=== PATIENT | female | born 1990 | race Caucasian/White ===

== ENCOUNTER 2016-11-14 18:03 | Emergency (ER) | payer OTHER ==
[~2016-11-14] VITALS: Ht 180.3 cm; Wt 142.9 kg
[~2016-11-14 18:03] MED LIST: ALBUTEROL2.5 MG/3 M INH/SOL; AMOXIL500 MG PO; CALCIPOTRIENE TOP; CIPRO 500MG TA500 MG PO; CIPRO500 M1 PO; CIPRODEX 0.3%-7.5 ML OOTO; CLEOCIN HCL300 MG PO; ENDOCET 325 MG-1 TA1 PO; FIORICET 50-301 EACH PO; FOLIC ACID1 M1 PO; HUMIRA (4040 MG/0.8 INJ; MEDROL4 MG PO; METHOTREXA25 MG/1 ML IM; MOTRIN 600 MG600 MG PO; PERCOCET 325 MG1 TA2 PO; PERCOCET 5-3251 EACH PO; PROAIR HFA8.5 GM INH; STELARA90 MG/1 ML IM; URIBEL CAPSULE1 EACH PO; VICODIN 5-3001 EACH PO; VICODIN5-300 PO; ZOFRAN ODT4 M1 PO; ZOFRAN4 M2 PO
--- NOTE | 2016-11-14 19:21 | ED GENERAL ADULT ---
History of Present Illness General Chief Complaint: Chest Pain Stated Complaint: CP Source: patient Exam Limitations: no limitations Vital Signs & Intake/Output Vital Signs & Intake/Output Vital Signs Date Time Temp Pulse Resp B/P Pulse O2 O2 Flow FiO2 Ox Delivery Rate 11/14 2111 98.2 80 16 144/80 98 Room Air Room Air 11/14 1817 98.4 97 20 135/85 100 Room Air ED Intake and Output 11/15 0000 11/14 1200 Intake Total Output Total Balance Patient 315 lb Weight Allergies Coded Allergies: cat dander (TRIGGERS ASTHMA 11/14/16) Reconcile Medications Albuterol Sulfate (Proair Hfa) 8.5 GM HFA.AER.AD 2 PUF INH PRN ASTHMA ( Reported) Albuterol Sulfate 2.5 MG/3 ML VIAL.NEB 1 Vial INH/PATTI PRN ASTHMA (Reported) Naproxen 375 MG TABLET 1 TAB PO BID PRN PAIN (Reported) with food Oxycodone HCl/Acetaminophen (Percocet 5-325 MG Tablet) 5 MG-325 MG TABLET 1 TAB PO BID pain Prednisone 20 MG TABLET 1 TAB PO BID psoriac arthritis Secukinumab (Cosentyx Pen (2 Pens)) (Unknown Strength) PEN.INJCTR (Unknown Dose) PSORIATIC ARTHRITIS/PSORIASIS (Reported) Triage Note: TRIAGE: PT TO ER C/C PAIN TO MID CHEST AND UPPER ABD, ONSET THURSDAY. HAS PMHX INCLUDING PSORIATIC ARTHRITIS AND WAS SUPPOSED TO SEE FREIGHT SEPARATOR YESTERDAY BUT R/T WEATHER WAS UNABLE. STATES HER DR THINKS IT MIGHT BE SPREADING TO HER STERNUM. PT HAD EKG DONE IN [place] PRIOR TO TRIAGE. DENIES SOB, -N/V, -DIAPHORESIS. Triage Nurses Notes Reviewed? yes Onset: Gradual Duration: week(s): (2) Timing: recent history Injury Environment: home Severity: moderate Severity Numbers: 7 Modifying Factors: Improves With: immobilization. Worsens With: movement. : No Patient currently breastfeeds: No HPI: Patient is a 26-year-old female with history of psoriatic arthritis currently not on any medications because they are starting a new immunologic medication and a couple weeks. Patient complaining about chest wall pain that been constant for the past 2 weeks worse over the past 3 or 4 days. Denies any palpitations. No shortness of breath. Denies any control use. Denies any unilateral leg swelling. No history of blood clots. No recent travel, no recent surgery. She's been taking [id number] ibuprofen with little to no relief. She just finished a course of steroids last week for her psoriatic arthritis. Chest pain is achy worse with palpation or any movement. Symptoms currently is out of 10. (REBEL PINA) Past History Travel History Traveled to [place] past 21 day No Medical History Any Pertinent Medical History? 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 No (REBEL PINA) Review of Systems Review of Systems Constitutional: Reports: no symptoms. Comments Review of systems: See HPI, All other systems negative. Constitutional, no chills fever or weight loss HEENT: No visual changes no sore throat no congestion Cardiovascular: No palpitation , orthopnea or ankle swelling Skin, no jaundice no rashes Respiratory: No dyspnea cough sputum or hemoptysis GI: No nausea no vomiting : No dysuria No hematuria Muscle skeletal: no back pain, no neck pain, Neurologic: No numbness no confusion Psych: No stress anxiety Immunology: No splenectomy or history of AIDS (REBEL PINA) Physical Exam Physical Exam General Appearance: well developed/nourished, no apparent distress, alert, awake , comfortable, obese Comments: Well-developed well-nourished person in no acute distress HEENT: Pupils equally round and reactive to light and accommodation. Nose is atraumatic. Neck: Supple, no lymphadenopathy, normal range of motion without pain or tenderness Back: Nontender Cardiovascular: Regular rate and rhythms no murmurs rubs or gallops, normal JVP Respiratory: Chest is tender to palpation along the sternum, no rashes or bruising noted. No respiratory distress.breath sounds clear to auscultation bilaterally Abdomen: Soft, nontender nondistended, no appreciable organomegaly. Normal bowel sounds. No ascites, obese. Extremity: No edema, no calf tenderness to palpation, normal and equal pulses. Neuro: Alert oriented x3 Skin: No appreciable rash on exposed skin, skin is warm and dry. Psych: Mood and affect is normal, memory and judgment is normal. Core Measures ACS in differential dx? Yes CVA/TIA Diagnosis: No Severe Sepsis Present: No Septic Shock Present: No (PATIENCE MANCILLA,REBEL) Progress Differential Diagnoses I considered the following diagnoses in my evaluation of the patient: Chest wall pain, psoriatic arthritis, ACS, PE Plan of Care: Orders Procedure Date/time Status TROPONIN LEVEL 11/14 1919 Complete COMPREHENSIVE METABOLIC PANEL 11/14 1919 Complete CBC WITHOUT DIFFERENTIAL 11/14 1919 Complete EKG 11/14 1803 Active Laboratory Tests 11/14/161956: Anion Gap 15, Estimated GFR > 60, BUN/Creatinine Ratio 16.3, Glucose 96, Calcium 9.4, Total Bilirubin 0.7, AST 17, ALT 34, Alkaline Phosphatase 69, Troponin I < 0.01, Total Protein 8.0, Albumin 4.3, Globulin 3.7, Albumin/Globulin Ratio 1.2, CBC w Diff NO MAN DIFF REQ, RBC 5.02, MCV 80.2 L, MCH 26.7 L, RDW 13.6, MPV 7.6, Gran % 77.0 H, Lymphocytes % 15.6 L, Monocytes % 5.2, Eosinophils % 1.2, Basophils % 1.0, Absolute Granulocytes 10.5 H, Absolute Lymphocytes 2.1, Absolute Monocytes 0.7 H, Absolute Eosinophils 0.2, Absolute Basophils 0.1, PUBS MCHC 33.3 Diagnostic Imaging: Viewed by Me: Radiology Read. Discussed w/RAD: Radiology Read. Radiology Impression: PATIENT: BILLIE BURLESON PRESENT AGE: 26 PATIENT ACCOUNT NO: [id number] : 88 LOCATION: [facility] ORDERING PHYSICIAN: REBEL MANCILLA SERVICE DATE: 11/14/16-1919 EXAM TYPE: RAD - XRY-CHEST XRAY, PA AND LATERAL; XRY-STERNUM EXAMINATION: XR STERNUM CHEST X-RAY CLINICAL INFORMATION: History psoriatic arthritis. COMPARISON: None TECHNIQUE: 2 views of the sternum were obtained. PA and lateral chest FINDINGS: No gross evidence of sternal abnormality. Evaluation is limited by patient's body habitus. Cardiomediastinal silhouette is within normal limits. Lungs are clear. Visualized bony thorax is intact.. IMPRESSION: 1. No acute pulmonary disease. 2. No gross evidence of sternal abnormality. Evaluation is limited by patient's body habitus. Initial ED EKG: sinus rhythm at 96 bpm. Prior EKG: changed (slower than previous) Comments: On arrival patient given IM Toradol for pain. Patient had little relief with Toradol. She was then given Percocet which she reported helped. perc negative. EKG sinus rhythm. No acute changes. Troponin is negative. Pain has been constant for the past 2 weeks just worse over the past couple days. Pain is reproducible on exam. Likely muscular. Patient follow-up with PCP. (REBEL PINA) Departure Departure Time of Disposition: 2058 Disposition: HOME OR SELF CARE Condition: Stable Clinical Impression Primary Impression: Chest wall pain Referrals: TYRON GLEASON,SENTHIL Tripathi (PCP/Family) Additional Instructions: Follow-up with her primary care physician call to make appointment. Take prednisone as prescribed. Take Percocet as prescribed for severe pain. Return for worsening symptoms or concerns. Departure Forms: Customer Survey General Discharge Information Prescriptions: Current Visit Scripts Prednisone 1 TAB PO BID #8 TAB Oxycodone HCl/Acetaminophen (Percocet 5-325 MG Tablet) 1 TAB PO BID #10 TAB (REBEL PINA) PA/WEBFOCUS DEVELOPER Co-Sign Statement Statement: ED Attending supervision documentation- [] I saw and evaluated the patient. I have also reviewed all the pertinent lab results and diagnostic results. I agree with the findings and the plan of care as documented in the PA's/WEBFOCUS DEVELOPER's documentation. [x] I have reviewed the ED Record and agree with the PA's/WEBFOCUS DEVELOPER's documentation. [] Additions or exceptions (if any) to the PAs/WEBFOCUS DEVELOPER's note and plan are summarized below: [] (JUAREZ GLEASON,ELZA Tripathi) Critical Care Note Critical Care Note Critical Care Time: non-applicable (REBEL PINA)
[2016-11-14 20:08] LABS: ABSOLUTE BASOPHIL COUNT 0.1 /CUMM (0.0-0.2); ABSOLUTE EOSINOPHIL COUNT 0.2 /CUMM (0.0-0.7); ABSOLUTE GRANULOCYTE CT 10.5 /CUMM (1.4-6.5); ABSOLUTE LYMPH COUNT 2.1 /CUMM (1.2-3.4); ABSOLUTE MONOCYTE COUNT 0.7 /CUMM (0.10-0.60); EOSINOPHIL % 1.2 % (0-5); HEMATOCRIT 40.3 % (37-47); MEAN CORPUSCULAR HGB 26.7 PG (27.0-31.0); MEAN CORPUSCULAR HGB CONC 33.3 G/DL (33.0-37.0); MEAN CORPUSCULAR VOLUME 80.2 FL (81.0-99.0); MEAN PLATELET VOLUME 7.6 FL (7.4-10.4); PLATELET COUNT 284 /CUMM (130-400); RBC DISTRIBUTION WIDTH 13.6 % (11.5-14.5); RED BLOOD CELL CT 5.02 /CUMM (4.20-5.40); WHITE BLOOD CELL COUNT 13.6 /CUMM (4.8-10.8)
--- NOTE | 2016-11-14 20:22 | RADIOLOGY REPORT ---
EXAMINATION: XR STERNUM CHEST X-RAY CLINICAL INFORMATION: History psoriatic arthritis. COMPARISON: None TECHNIQUE: 2 views of the sternum were obtained. PA and lateral chest FINDINGS: No gross evidence of sternal abnormality. Evaluation is limited by patient's body habitus. Cardiomediastinal silhouette is within normal limits. Lungs are clear. Visualized bony thorax is intact.. IMPRESSION: 1. No acute pulmonary disease. 2. No gross evidence of sternal abnormality. Evaluation is limited by patient's body habitus.
[2016-11-14] MEDS ORDERED: COSENTYX P150 MG/11 PO (20:34)
[2016-11-14] MEDS ORDERED: NAPROXEN375 M2 PO (20:34)
[2016-11-14] MEDS ORDERED: PERCOCET 5-3251 EACH PO (21:01)
[2016-11-14] MEDS ORDERED: PREDNISONE20 M1 PO (21:01)
[2016-11-14 21:12] VITALS: BP 144/80
== END 2016-11-14 21:12 ==
LOC: ERH 18:03
PROVIDERS: Physician Assistant
DX: R07.89 Other chest pain (principal)
CPT/HCPCS: 71120; 93005; 93010; 96372; J1885

== ENCOUNTER 2016-12-13 10:11 | Emergency (ER) | payer OTHER ==
[~2016-12-13] VITALS: Ht 180.3 cm; Wt 158.8 kg
[~2016-12-13 10:11] MED LIST changes: +COSENTYX P150 MG/11 PO; +NAPROXEN375 M2 PO; +PREDNISONE20 M1 PO
[2016-12-13 10:19] VITALS: BP 142/85
--- NOTE | 2016-12-13 10:32 | ED EYE COMPLAINT ---
History of Present Illness General Chief Complaint: Eye Problems Stated Complaint: LFT EYE STY Source: patient Exam Limitations: no limitations Vital Signs & Intake/Output Vital Signs & Intake/Output Vital Signs Date Time Temp Pulse Resp B/P Pulse O2 O2 Flow FiO2 Ox Delivery Rate 12/13 1019 98.9 90 18 142/85 100 Room Air Allergies Coded Allergies: cat dander (TRIGGERS ASTHMA 11/14/16) Reconcile Medications Albuterol Sulfate (Proair Hfa) 8.5 GM HFA.AER.AD 2 PUF INH PRN ASTHMA ( Reported) Albuterol Sulfate 2.5 MG/3 ML VIAL.NEB 1 Vial INH/PATTI PRN ASTHMA (Reported) Naproxen 375 MG TABLET 1 TAB PO BID PRN PAIN (Reported) with food Oxycodone HCl/Acetaminophen (Percocet 5-325 MG Tablet) 5 MG-325 MG TABLET 1 TAB PO BID pain Polytrim (Polytrim Eye Drops) 10,000 UNIT-1 MG/ML DROPS 1 GTT OPH Q6 DISCHARGE FROM CORNER OF EYE Prednisone 20 MG TABLET 1 TAB PO BID psoriac arthritis Secukinumab (Cosentyx Pen (2 Pens)) (Unknown Strength) PEN.INJCTR (Unknown Dose) PSORIATIC ARTHRITIS/PSORIASIS (Reported) Triage Note: PT TO ED FOR STY TO L EYE, PT REPORTING SHE HAD ENDOSCOPY ON THURSDAY, WOKE UP "COUGHING REALLY REALLY HARD AND ITS BEEN RED SINCE" EYE APPEARS RED AND EYE LID APPEARS BRUISED, PT REPORTING MILD PAIN "WHEN I TOUCH IT" NO VISION CHANGES, NO SENSITIVITY TO LIGHT. Triage Nurses Notes Reviewed? yes Onset: Abrupt Duration: day(s): (3), constant, continues in ED Timing: recent history No Modifying Factors: none Left Eye Associated Symptoms: orbital swelling : No Patient currently breastfeeds: No HPI: 26-year-old female comes into emergency room for further evaluation of swelling to her left eye and some redness to her left eye. Patient reports that 3 days ago she had an upper endoscopy done. Patient reports that she woke up from the anesthesia and was coughing severely. Patient reports that a few hours later she noticed blood to her left eye. She also had some bruising to the left eyelid which developed over the next 24 hours. Patient was not told that she had any type of trauma during the upper endoscopy. Denies any vision loss. Patient reports that she did have some discharge yellow crusting out of the corner of the eye this morning. Denies any foreign body sensation or severe discomfort. Patient reports some mild irritation to the left side of the eye but otherwise is not having any pain. (STACIE LOMBARDO) Past History Travel History Traveled to [place] past 21 day No Medical History Any Pertinent Medical History? 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 No (STACIE LOMBARDO) Review of Systems Review of Systems Constitutional: Reports: no symptoms. Eyes: Reports: see HPI. Ear: Reports: no symptoms. Nose: Reports: no symptoms. Mouth: Reports: no symptoms. Throat: Reports: no symptoms. Respiratory: Reports: no symptoms. Cardiovascular: Reports: no symptoms. GI: Reports: no symptoms. Genitourinary: Reports: no symptoms. Musculoskeletal: Reports: no symptoms. Skin: Reports: no symptoms. Neurological/Psychological: Reports: no symptoms. Hematologic/Endocrine: Reports: no symptoms. Immunologic/Allergic: Reports: no symptoms. All Other Systems: Reviewed and Negative (STACIE LOMBARDO) Physical Exam General Appearance: well developed/nourished, mild distress General Inspection: ecchymosis to the left orbit Eyelid: ecchymosis Conjunctiva/Sclera: subconjunctival hemorrhag Cornea: normal inspection, examined w/fluorescein, no abrasion appreciated EOM: intact Pupil: normal accommodation, normal pupil, PERRL General Inspection: normal inspection Eyelid: normal inspection Conjunctiva/Sclera: normal inspection Cornea: normal inspection EOM: intact Pupil: normal accommodation, normal pupil, PERRL Anterior Chamber: normal inspection Physical Exam Head: atraumatic Nose: normal inspection Mouth/Throat: normal mouth inspection Neck: normal inspection Cardiovascular/Respiratory: normal breath sounds Neurologic/Psych: awake, alert, oriented x 3, normal mood/affect Skin: intact, normal color, warm/dry (STACIE LOMBARDO) Progress Differential Diagnosis: corneal abrasion, corneal foreign body, conjunctivitis, detached retina, glaucoma, globe rupture, retinal art./v. occlusion Plan of Care: 12/13/2016 11:14:21 AM Patient clinically looks well. Patient is nontoxic-appearing. Patient is in no apparent distress. Patient has a subconjunctival hemorrhage. There is no evidence of any type of globe trauma. There is no evidence of corneal abrasion. Patient has some bruising to the left eyelid. Patient likely had some mild trauma possibly from when she had the upper endoscopy but there is no visible signs of trauma to the eye itself. The subconjunctival hemorrhage is likely result from the patient's severe coughing. Patient has no vision loss. Clinically looks well. In no apparent distress. Patient started on eyedrops due to her complaints of discharge and crusting but there is no visible signs of infection at the moment. Patient was referred to follow-up with ophthalmology. Return if any other concerns worsening symptoms. (STACIE LOMBARDO) Departure Departure Disposition: HOME OR SELF CARE Condition: Stable Clinical Impression Primary Impression: Subconjunctival hemorrhage Referrals: TYRON GLEASON,SENTHIL Tripathi (PCP/Family) kalie HARRIS MD,[place] Lizarraga Additional Instructions: Use Polytrim drops as prescribed. Follow-up with dental assistant teacher. Return to emergency room if any concerns worsening symptoms. Please go over all results of today's visit with your primary care doctor. Contact your primary care doctor to let them know you were here in the emergency room. There may be nonspecific findings which may not be related to your visit today here in the emergency room but may require further evaluation and chronic monitoring by your primary care doctor. If you had a laceration today the chance of foreign body always remains. You should follow-up with your primary care doctor for recheck in 3-5 days for a wound check. If you had an x-ray done there is a chance that a fracture could have been missed on initial read and you should follow-up with your primary care doctor for repeat x-rays if symptoms persist. If your blood pressure was elevated here in the emergency room please have rechecked by her primary care doctor within the next 48 hours by your primary care doctor. If you were prescribed a narcotic here in the emergency room or any type of controlled substances you're not allowed to drive while taking this medication or operate any type of heavy machinery. Narcotics can make you feel lightheaded dizziness nausea and can cause constipation. You may need to pepper picker a stool softener. Thank you for choosing [facility] emergency room. Please return to the emergency room immediately if you have any other concerns worsening of symptoms. Departure Forms: Customer Survey General Discharge Information Prescriptions: Current Visit Scripts Polytrim (Polytrim Eye Drops) 1 GTT OPH Q6 #10 ML (STACIE LOMBARDO) PA/EFFERVESCENT SALTS COMPOUNDER Co-Sign Statement Statement: ED Attending supervision documentation- [] I saw and evaluated the patient. I have also reviewed all the pertinent lab results and diagnostic results. I agree with the findings and the plan of care as documented in the PA's/EFFERVESCENT SALTS COMPOUNDER's documentation. [X] I have reviewed the ED Record and agree with the PA's/EFFERVESCENT SALTS COMPOUNDER's documentation. [] Additions or exceptions (if any) to the PAs/EFFERVESCENT SALTS COMPOUNDER's note and plan are summarized below: [] (ALONDRA GLEASON,WHITNEY)
[2016-12-13] MEDS ORDERED: POLYTRIM EYE DR10 ML OPH (10:39)
== END 2016-12-13 10:42 ==
LOC: ERH 10:11
DX: H11.32 Conjunctival hemorrhage, left eye (principal)

== ENCOUNTER 2017-01-09 17:30 | Emergency (ER) | payer OTHER ==
[~2017-01-09] VITALS: Ht 180.3 cm; Wt 135.2 kg
[~2017-01-09 17:30] MED LIST changes: +POLYTRIM EYE DR10 ML OPH
--- NOTE | 2017-01-09 18:18 | ED GI/GU/ABDOMINAL COMPLAINT ---
History of Present Illness General Chief Complaint: General Adult Stated Complaint: HEMMOROIDS, BLEEDING Source: patient Exam Limitations: no limitations Vital Signs & Intake/Output Vital Signs & Intake/Output Vital Signs Date Time Temp Pulse Resp B/P Pulse O2 O2 Flow FiO2 Ox Delivery Rate 01/09 2122 96.5 78 18 122/57 98 Room Air 01/09 1908 85 16 100 Room Air 01/09 1905 97 Room Air 01/09 1741 97.7 124 20 107/68 99 Room Air ED Intake and Output 01/10 0000 01/09 1200 Intake Total Output Total Balance Patient 298 lb Weight Allergies Coded Allergies: cat dander (TRIGGERS ASTHMA 01/09/17) Triage Note: TRIAGE: PT TO ER C/C HEMNORHOIDAL PAIN AND BLEEDING, ONSET THURSDAY. ALSO REPORTS DIFFICULTY URINATING. PT S/P GASTRIC SLEEVE 12/18/2016. Triage Nurses Notes Reviewed? yes ? N Is pt currently ? No Onset: Abrupt Duration: day(s): (5) Timing: multiple episodes today Quality/Severity: sharpness, severe Location: RECTUM Activities at Onset: SURGERY ON December Modifying Factors: Worsens With: other (STRAINING). HPI: 26 year old female who presents with bright red blood per rectum that started on thursday. [place] hemorrhoids would come out with valsalva movement. No bowel movements since Thursday night. Nausea since thursday, denies abdominal pain. S/P gastric sleeve on December 18 on a liquid diet since then. Reports difficulty urinating which she feels is from the hemorrhoids. She has used stoool softeners, sitz baths, suppositories without relief. (ALONDRA GLEASON,[facility]) Reconcile Medications Albuterol Sulfate (Proair Hfa) 8.5 GM HFA.AER.AD 2 PUF INH PRN ASTHMA ( Reported) Albuterol Sulfate 2.5 MG/3 ML VIAL.NEB 1 Vial INH/PATTI PRN ASTHMA (Reported) Anusol Hc (Anusol-Hc) 25 MG SUPP.RECT 1 SUP RC TID hemorrhoids/anal fissure Hydrocortisone/Pramoxine (Proctofoam-Hc 1%-1% Foam) 1 %-1 % FOAM 1 A RC TID PRN hemorrhoids/anal fissure Naproxen 375 MG TABLET 1 TAB PO BID PRN PAIN (Reported) with food Oxycodone HCl/Acetaminophen (Percocet 5-325 MG Tablet) 5 MG-325 MG TABLET 1 TAB PO BID pain Polytrim (Polytrim Eye Drops) 10,000 UNIT-1 MG/ML DROPS 1 GTT OPH Q6 DISCHARGE FROM CORNER OF EYE Prednisone 20 MG TABLET 1 TAB PO BID psoriac arthritis Secukinumab (Cosentyx Pen (2 Pens)) (Unknown Strength) PEN.INJCTR (Unknown Dose) PSORIATIC ARTHRITIS/PSORIASIS (Reported) (JUAREZ GLEASON,ELZA Tripathi) Past History Travel History Traveled to [place] past 21 day No Medical History Any Pertinent Medical History? 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 No (ALONDRA GLEASON,[facility]) Review of Systems Review of Systems Constitutional: Denies: chills, fever. EENTM: Reports: no symptoms. Respiratory: Denies: cough, short of breath. Cardiovascular: Denies: chest pain, palpitations. GI: Reports: see HPI (RECTAL PAIN). Genitourinary: Reports: no symptoms. Musculoskeletal: Reports: no symptoms. Skin: Reports: no symptoms. Neurological/Psychological: Reports: anxiety. Hematologic/Endocrine: Reports: bleeding. Immunologic/Allergic: Denies: splenectomy. All Other Systems: Reviewed and Negative (ALONDRA GLEASON,[facility]) Physical Exam Physical Exam General Appearance: well developed/nourished, alert, awake, anxious, moderate distress, obese Head: atraumatic, normal appearance Eyes: Bilateral: normal appearance, PERRL, EOMI. Ears, Nose, Throat, Mouth: hearing grossly normal, moist mucous membrane Neck: normal inspection, supple, full range of motion Respiratory: normal breath sounds, chest non-tender, no respiratory distress Cardiovascular: tachycardia Peripheral Pulses: 2+ radial (R), 2+ radial (L) Gastrointestinal: soft, non-tender, WELL HEALED INCISION SITES Rectal: FIRM INTERNAL HEMORRHOID, NO STOOL, GUIAC POSITIVE Extremities: normal range of motion Neurologic/Psych: no motor/sensory deficits, awake, alert, oriented x 3 Skin: intact, normal color, warm/dry Core Measures ACS in differential dx? No Severe Sepsis Present: No Septic Shock Present: No (WHITNEY CANTU MD) Progress Differential Diagnosis: HEMORRHOIDS, ANEMIA, DEHYDRATION, NEISHA Plan of Care: Orders Procedure Date/time Status COMPREHENSIVE METABOLIC PANEL 01/09 1851 Complete CBC WITHOUT DIFFERENTIAL 01/09 1851 Complete Laboratory Tests 01/09/17 1900: Anion Gap 16, Estimated GFR > 60, BUN/Creatinine Ratio 10.0, Glucose 73, Calcium 9.6, Total Bilirubin 0.8, AST 19, ALT 33, Alkaline Phosphatase 52, Total Protein 7.6, Albumin 4.2, Globulin 3.4, Albumin/Globulin Ratio 1.2, CBC w Diff NO MAN DIFF REQ, RBC 5.03, MCV 80.1 L, MCH 26.4 L, RDW 14.6 H, MPV 8.8, Gran % 64.2, Lymphocytes % 28.0, Monocytes % 6.2, Eosinophils % 1.4, Basophils % 0.2, Absolute Granulocytes 5.5, Absolute Lymphocytes 2.4, Absolute Monocytes 0.5, Absolute Eosinophils 0.1, Absolute Basophils 0, PUBS MCHC 33.0 01/09/171850: Urine Color Cancelled, Urine Clarity Cancelled, Urine pH Cancelled, Ur Specific [place] Cancelled, Urine Protein Cancelled, Urine Ketones Cancelled, Urine Nitrite Cancelled, Urine Bilirubin Cancelled, Urine Urobilinogen Cancelled, Ur Leukocyte Esterase Cancelled, Ur Microscopic Cancelled, Urine Hemoglobin Cancelled, Urine Glucose Cancelled Initial ED EKG: none Hand-Off Endorsed To: JUAREZ GLEASON,ELZA Tripathi Endorsed Time: 1909 Pending: labs, other (REEVALUATION) (WHITNEY CANTU MD) Departure Departure Disposition: STILL A PATIENT Condition: Stable Clinical Impression Primary Impression: Internal hemorrhoid Secondary Impressions: Rectal bleeding, Urinary retention Referrals: TYRON GLEASON,SENTHIL Tripathi (PCP/Family) Departure Forms: Customer Survey General Discharge Information (ALONDRA MD,[facility]) Departure Prescriptions: Current Visit Scripts Anusol Hc (Anusol-Hc) 1 SUP RC TID #28 SUP Hydrocortisone/Pramoxine (Proctofoam-Hc 1%-1% Foam) 1 A RC TID PRN hemorrhoids/ anal fissure #10 GM Ref 1 PA/ENTRY LEVEL JAVA DEVELOPER Co-Sign Statement Statement: ED Attending supervision documentation- [] I saw and evaluated the patient. I have also reviewed all the pertinent lab results and diagnostic results. I agree with the findings and the plan of care as documented in the PA's/ENTRY LEVEL JAVA DEVELOPER's documentation. [X] I have reviewed the ED Record and agree with the PA's/ENTRY LEVEL JAVA DEVELOPER's documentation. [] Additions or exceptions (if any) to the PAs/ENTRY LEVEL JAVA DEVELOPER's note and plan are summarized below: [] (JUAREZ GLEASON,ELZA Tripathi)
[2017-01-09 19:21] LABS: ABSOLUTE BASOPHIL COUNT 0 /CUMM (0.0-0.2); ABSOLUTE EOSINOPHIL COUNT 0.1 /CUMM (0.0-0.7); ABSOLUTE GRANULOCYTE CT 5.5 /CUMM (1.4-6.5); ABSOLUTE LYMPH COUNT 2.4 /CUMM (1.2-3.4); ABSOLUTE MONOCYTE COUNT 0.5 /CUMM (0.10-0.60); BASOPHIL % 0.2 % (0.0-2.0); EOSINOPHIL % 1.4 % (0-5); GRANULOCYTE % 64.2 % (42.2-75.2); HEMATOCRIT 40.3 % (37-47); MEAN CORPUSCULAR HGB 26.4 PG (27.0-31.0); MEAN CORPUSCULAR VOLUME 80.1 FL (81.0-99.0); MEAN PLATELET VOLUME 8.8 FL (7.4-10.4); PLATELET COUNT 253 /CUMM (130-400); RBC DISTRIBUTION WIDTH 14.6 % (11.5-14.5); RED BLOOD CELL CT 5.03 /CUMM (4.20-5.40); WHITE BLOOD CELL COUNT 8.5 /CUMM (4.8-10.8)
[2017-01-09] MEDS ORDERED: PROCTOFOAM-HC 110 GM RC (21:07)
[2017-01-09] MEDS ORDERED: ANUSOL-HC25 M1 RC (21:07)
[2017-01-09 21:22] VITALS: BP 122/57
== END 2017-01-09 21:46 ==
LOC: ERH 17:30
PROVIDERS: Emergency Medicine
DX: K64.8 Other hemorrhoids (principal); R33.9 Retention of urine, unspecified
CPT/HCPCS: 96374; J1885

== ENCOUNTER 2017-03-02 15:03 | Emergency (ER) | payer OTHER ==
[~2017-03-02] VITALS: Ht 180.3 cm; Wt 127.0 kg
[~2017-03-02 15:03] MED LIST changes: +ANUSOL-HC25 M1 RC; +PROCTOFOAM-HC 110 GM RC
--- NOTE | 2017-03-02 16:45 | ED DYSPNEA/ASTHMA COMPLAINT ---
History of Present Illness General Chief Complaint: Wheezing/Asthma Stated Complaint: ASTHMA Source: patient Exam Limitations: no limitations Vital Signs & Intake/Output Vital Signs & Intake/Output Vital Signs Date Time Temp Pulse Resp B/P B/P Pulse O2 O2 Flow FiO2 Mean Ox Delivery Rate 03/02 1838 96.5 107 14 161/69 100 Room Air 03/02 1752 97 03/02 1718 98.1 86 16 120/71 98 Room Air 03/02 1646 97 03/02 1637 98 Room Air 03/02 1515 97.0 100 20 142/78 96 Room Air Allergies Coded Allergies: cat dander (TRIGGERS ASTHMA 01/09/17) Reconcile Medications Albuterol Sulfate (Proair Hfa) 8.5 GM HFA.AER.AD 2 PUF INH PRN ASTHMA ( Reported) Albuterol Sulfate 2.5 MG/3 ML VIAL.NEB 1 Vial INH/PATTI PRN ASTHMA (Reported) Albuterol Sulfate 1.25 MG/3 ML VIAL.NEB 1 Vial INH/PATTI Q4-6 PRN ASTHMA Anusol Hc (Anusol-Hc) 25 MG SUPP.RECT 1 SUP RC TID hemorrhoids/anal fissure Benzonatate (Tessalon Perle) 100 MG CAPSULE 1 CAP PO TID PRN COUGH Codeine Phosphate/Guaifenesi (Cheratussin AC Syrup) 10 MG-100 MG/5 ML LIQUID 10 ML PO TID PRN COUGH Hydrocortisone/Pramoxine (Proctofoam-Hc 1%-1% Foam) 1 %-1 % FOAM 1 A RC TID PRN hemorrhoids/anal fissure Naproxen 375 MG TABLET 1 TAB PO BID PRN PAIN (Reported) with food Oxycodone HCl/Acetaminophen (Percocet 5-325 MG Tablet) 5 MG-325 MG TABLET 1 TAB PO BID pain Polytrim (Polytrim Eye Drops) 10,000 UNIT-1 MG/ML DROPS 1 GTT OPH Q6 DISCHARGE FROM CORNER OF EYE Prednisone 20 MG TABLET 1 TAB PO BID psoriac arthritis Prednisone 10 MG TABLET 1 TAB PO AD ASTHMA DAY1/DAY2 4 TABS DAY3/DAY4 3 TABS DAY5/DAY6 2 TABS DAY7 ONE TAB Secukinumab (Cosentyx Pen (2 Pens)) (Unknown Strength) PEN.INJCTR (Unknown Dose) PSORIATIC ARTHRITIS/PSORIASIS (Reported) Triage Note: PT TO ED C/O ASTHMA EXACERBATION SINCE THURSDAY. HAS TAKEN NEBS AT HOME WITH NO RELIEF. PT CURRENLY ON PREDNISONE FOR A FLARE UP OF PSORIATIC ARTHRITIS. RA SATS 96%. NO OBVIOUS RESP DISTRESS NOTED. Triage Nurses Notes Reviewed? yes Onset: Gradual Duration: constant Timing: recent history Severity: severe : No Patient currently breastfeeds: No HPI: Patient is a 26-year-old female with a past medical history of asthma and rheumatoid arthritis where she has been complaining of worsening shortness of breath and wheezing and cough for the past 4 days where her symptoms have not improved with multiple nebulizer and albuterol inhaler treatments. Patient currently is on a steroid pack for exacerbation of rheumatoid arthritis. Patient does state that last night she had a fever however today it has resolved. Denies any chest pain arm pain jaw pain hemoptysis Past History Travel History Traveled to [place] past 21 day No Medical History Any Pertinent Medical History? 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 No Review of Systems Review of Systems Constitutional: Reports: see HPI. EENTM: Reports: no symptoms. Respiratory: Reports: see HPI, cough, short of breath, wheezing. Cardiovascular: Reports: no symptoms. GI: Reports: no symptoms. Genitourinary: Reports: no symptoms. Musculoskeletal: Reports: no symptoms. Skin: Reports: no symptoms. Neurological/Psychological: Reports: no symptoms. Hematologic/Endocrine: Reports: no symptoms. Immunologic/Allergic: Reports: no symptoms. All Other Systems: Reviewed and Negative Physical Exam Physical Exam General Appearance: no apparent distress, obese Respiratory: chest non-tender, no respiratory distress, wheezing Comments: HEENT: Normal EENT exam, Neck: Supple, no lymphadenopathy, normal range of motion without pain or tenderness Back: Nontender, no CVA tenderness. Cardiovascular: Regular rate and rhythms no murmurs rubs or gallops, normal JVP Abdomen: Soft, nontender nondistended, no appreciable organomegaly. Normal bowel sounds. No ascites Extremity: No edema, no calf tenderness to palpation, normal and equal pulses. Neuro: Alert oriented x3, motor sensory normal, Skin: No appreciable rash on exposed skin, skin is warm and dry. Psych: Mood and affect is normal, memory and judgment is normal. Core Measures ACS in differential dx? No Severe Sepsis Present: No Septic Shock Present: No Progress Differential Diagnosis: asthma, AMI, bronchitis, costochondritis, CHF, COPD, musculoskeletal pain, pericarditis, pulmonary embolism, pneumonia, pneumothorax, rib fracture, unstable angina Plan of Care: Patient on initial examination was afebrile no respiratory distress 98% room air oxygenation however wheezing was persistent and bilateral posterior lung scott. Nebulizer was initially administered with Solu-Medrol patient had minimal response with this in which a continuous 18 mL nebulizer will be administered After continuous nebulizer was performed patient had complete resolution of presenting wheezing on exam. Upon discharge patient looks well no apparent distress and will comply with discharge instructions and had no questions. SHe was given pulmonary referral Initial ED EKG: none Departure Departure Disposition: HOME OR SELF CARE Condition: Stable Clinical Impression Primary Impression: Acute asthma Referrals: FRANSICO GLEASON,Calli ACKERMAN MD,SENTHIL Tripathi (PCP/Family) Additional Instructions: As discussed continue home medications as directed. Begin the prescription of prednisone tomorrow as directed for the full course, begin the prescription of Tessalon Perles and Cheratussin for cough and a prescription of albuterol vials for nebulizer treatments. Follow-up tomorrow and establish restaurant lead Calli France MD for further evaluation treatment. If symptoms worsen return to the emergency room. Prescriptions are at [facility] Departure Forms: Customer Survey General Discharge Information Prescriptions: Current Visit Scripts Prednisone 1 TAB PO AD #19 TAB DAY1/DAY2 4 TABS DAY3/DAY4 3 TABS DAY5/DAY6 2 TABS DAY7 ONE TAB Benzonatate (Tessalon Perle) 1 CAP PO TID PRN COUGH #21 CAP Codeine Phosphate/Guaifenesi (Cheratussin AC Syrup) 10 ML PO TID PRN COUGH #100 ML Albuterol Sulfate 1 Vial INH/PATTI Q4-6 PRN ASTHMA #150 ML Critical Care Note Critical Care Note Critical Care Time: non-applicable
[2017-03-02 18:38] VITALS: BP 161/69
[2017-03-02] MEDS ORDERED: ALBUTEROL1.25 MG/1 INH/SOL (19:00)
[2017-03-02] MEDS ORDERED: TESSALON PERLE100 M1 PO (19:00)
[2017-03-02] MEDS ORDERED: CHERATUSSIN AC118 M1 PO (19:00)
[2017-03-02] MEDS ORDERED: PREDNISONE10 M2 PO (19:00)
== END 2017-03-02 19:12 ==
LOC: ERH 15:03
DX: J45.909 Unspecified asthma, uncomplicated (principal)
CPT/HCPCS: 1263; 1395; 1426; 94644; 96374; J2930

== ENCOUNTER 2017-03-03 00:04 | Inpatient (IN) | payer OTHER ==
[~2017-03-03] VITALS: Ht 180.3 cm; Wt 127.0 kg
[~2017-03-03 00:04] MED LIST changes: +ALBUTEROL1.25 MG/1 INH/SOL; +CHERATUSSIN AC118 M1 PO; +PREDNISONE10 M2 PO; +TESSALON PERLE100 M1 PO
--- NOTE | 2017-03-03 00:16 | ED DYSPNEA/ASTHMA COMPLAINT ---
History of Present Illness General Chief Complaint: Wheezing/Asthma Stated Complaint: WHEEZING, HX OF ASTHMA Source: patient Exam Limitations: no limitations Vital Signs & Intake/Output Vital Signs & Intake/Output Vital Signs Date Time Temp Pulse Resp B/P B/P Pulse O2 O2 Flow FiO2 Mean Ox Delivery Rate 03/03 0135 98.8 145 20 139/70 95 Room Air 03/03 0045 99 03/03 0018 97.2 130 18 137/80 92 Room Air Allergies Coded Allergies: cat dander (TRIGGERS ASTHMA 01/09/17) Triage Nurses Notes Reviewed? yes Onset: Gradual Duration: getting worse Timing: recent history Severity: severe HPI: Patient is a 26-year-old female with a past medical history of asthma and psoriatic arthritis who presents emergency room for concerns of exacerbation of asthma where patient presented to the emergency room earlier today for similar symptoms which she was evaluated by me where she had been administered nebulizer treatments with complete resolution of symptoms along with site manage all. Patient states that when she went home she had exacerbation of symptoms where she tried antitussive medications and repeat nebulizer treatments with no resolution of persistent wheezing and shortness of breath and cough. (MACIEJ MANCILLA,KIMBERLY) Reconcile Medications Albuterol Sulfate (Proair Hfa) 8.5 GM HFA.AER.AD 2 PUF INH PRN ASTHMA ( Reported) Albuterol Sulfate 1.25 MG/3 ML VIAL.NEB 1 Vial INH/PATTI Q4-6 PRN ASTHMA Benzonatate (Tessalon Perle) 100 MG CAPSULE 1 CAP PO TID PRN COUGH Codeine Phosphate/Guaifenesi (Cheratussin AC Syrup) 10 MG-100 MG/5 ML LIQUID 10 ML PO TID PRN COUGH Prednisone 20 MG TABLET 1 TAB PO BID psoriac arthritis Secukinumab (Cosentyx Pen (2 Pens)) 150 MG/ML PEN.INJCTR 350 MG PO Q30D PSORIATIC ARTHRITIS (Reported) (JUAREZ GLEASON,ELZA Tripathi) Past History Travel History Traveled to [place] past 21 day No Medical History Any Pertinent Medical History? 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 No (KIMBERLY NAZARIO) Review of Systems Review of Systems Constitutional: Reports: no symptoms. EENTM: Reports: no symptoms. Respiratory: Reports: see HPI, cough, short of breath. Cardiovascular: Reports: no symptoms. GI: Reports: no symptoms. Genitourinary: Reports: no symptoms. Musculoskeletal: Reports: no symptoms. Skin: Reports: no symptoms. Neurological/Psychological: Reports: no symptoms. Hematologic/Endocrine: Reports: no symptoms. Immunologic/Allergic: Reports: no symptoms. All Other Systems: Reviewed and Negative (KIMBERLY NAZARIO) Physical Exam Physical Exam General Appearance: mild distress Respiratory: chest non-tender, wheezing, respiratory distress Comments: HEENT: Normal EENT exam, extraocular motion intact, no nystagmus. Pupils equally round and reactive to light and accommodation. Nose is atraumatic. External auditory canal and Tympanic membranes clear. Pharynx normal. No swelling or edema. Neck: Supple, no lymphadenopathy, normal range of motion without pain or tenderness Back: Nontender, no CVA tenderness. Cardiovascular: Tachycardia no murmurs rubs or gallops, normal JVP Abdomen: Soft, nontender nondistended, no appreciable organomegaly. Normal bowel sounds. No ascites Extremity: No edema, no calf tenderness to palpation, normal and equal pulses. Neuro: Alert oriented x3, motor sensory normal, Skin: No appreciable rash on exposed skin, skin is warm and dry. Psych: Mood and affect is normal, memory and judgment is normal. Core Measures ACS in differential dx? No Severe Sepsis Present: No Septic Shock Present: No (KIMBERLY NAZARIO) Progress Differential Diagnosis: asthma, AMI, bronchitis, costochondritis, CHF, COPD, musculoskeletal pain, pericarditis, pulmonary embolism, pneumonia, pneumothorax, rib fracture, unstable angina Plan of Care: Orders Procedure Date/time Status Regular Diet 03/03 B Active CBC WITHOUT DIFFERENTIAL 03/03 06 Active BASIC ELECTROLYTES PLUS BUN&CR 03/03 600 Active RAPID VIRAL INFLUENZA A 03/034 Active STREP PNEUMO URINARY ANTIGEN 03/03 234 Active LEGIONELLA URINARY ANTIGEN 03/03 234 Active LOWER RESPIRATORY CULTURE 03/03 234 Active BLOOD CULTURE 05/30 0234 Active URINE DRUGS OF ABUSE 03/03 0234 Active LACTIC ACID 03/03 0234 Active ETHANOL 03/03 0234 Active ARTERIAL BLOOD GAS (GEN) 03/03 0206 Active Lab Add-on Test 03/03 0200 Active Code Status 03/03 0156 Active Pathway - chart 03/03 0138 Active Patient Data 03/03 0127 Active Saline Lock 03/03 0122 Active Misc Message 03/03 0122 Active ED Holding Orders 03/03 0122 Active Vital Signs 03/03 0122 Active Code Status 03/03 0122 Complete Admit to inpatient 03/03 0121 Active PHOSPHORUS 03/03 0034 Active MAGNESIUM 03/03 0034 Active LACTIC ACID 03/03 0034 Active EKG 03/03 0030 Active HUMAN BETA HCG SCREEN 03/03 0029 Active COMPREHENSIVE METABOLIC PANEL 03/03 0029 Active CBC WITHOUT DIFFERENTIAL 03/03 0029 Complete Intake & Output 03/03 0016 Active TRC EVALUATION (GEN) 03/03 UNK Active OXYGEN SETUP (GEN) 03/03 UNK Active House Staff 03/03 UNK Active Lab Add-on Test 03/03 UNK Active VTE Mechanical Prophylaxis 03/03 UNK Active Vital Signs 03/03 UNK Active Current Medications Sig/Jeanne Start time Last Medication Dose Stop Time Status Admin Albuterol Sulfate 2 PUF Q4 03/03 0600 AC (Ventolin) Heparin Sodium 5,000 UNIT Q8 03/03 0600 AC (Porcine) Methylprednisolone 40 MG Q6 03/03 0600 AC (Solumedrol) Magnesium Sulfate 1 GM ONCE ONE 03/03 0315 AC 03/03 (Mag Sulfate in D5) 03/03 0714 0316 Dextrose/Water 100 ML (D5W) Benzonatate 100 MG TID PRN 03/03 0245 AC (Tessalon Capsule) Sodium Chloride 1,000 ML ONCE ONE 03/03 0245 AC 03/03 (Normal Saline 0.9%) 03/03 0924 0315 Tramadol HCl 50 MG Q6 PRN 03/03 0215 AC 03/03 (Ultram) 0220 Acetaminophen 650 MG Q6P PRN 03/03 0145 AC (Tylenol) Oxycodone HCl 5 MG Q4-6 PRN PRN 03/03 0145 AC (Roxicodone) Magnesium Sulfate 1 GM ONCE ONE 03/03 0045 AC 05/30 (Mag Sulfate in D5) 03/03 0444 0051 Dextrose/Water 100 ML (D5W) Laboratory Tests 03/03/17 0325: Lactic Acid Pending, Serum Alcohol Pending 03/03/17 0200: Magnesium Cancelled 03/03/17 0034: Anion Gap 21 H, Estimated GFR > 60, BUN/Creatinine Ratio 8.6, Glucose 203 H, Lactic Acid Pending, Calcium 9.8, Phosphorus 3.0, Magnesium 1.6, Total Bilirubin 0.6, AST 33, ALT 24, Alkaline Phosphatase 54, Total Protein 7.3, Albumin 4.2, Globulin 3.1, Albumin/Globulin Ratio 1.4, Total Beta HCG NEGATIVE, CBC w Diff MAN DIFF ORDERED, RBC 4.91, MCV 82.4, MCH 27.3, RDW 15.8 H, MPV 8.9, Gran % 96.2 H, Lymphocytes % 3.3 L, Monocytes % 0.3 L, Eosinophils % 0, Basophils % 0.2, Absolute Granulocytes 12.5 H, Absolute Lymphocytes 0.4 L, Absolute Monocytes 0 L, Absolute Eosinophils 0, Absolute Basophils 0, Platelet Estimate ADEQUATE, Polychromasia 1+, PUBS MCHC 33.1 Microbiology 03/03 325 BLOOD: Blood Culture - RECD 03/03 234 URINE ROUT: Legionella Antigen - ORD 03/03 234 URINE ROUT: Streptococcus pneumoniae Antigen (M - ORD 03/03 234 LOWER RESP: Respiratory Culture - ORD 03/03 234 LOWER RESP: Gram Stain - ORD 03/03 234 NASOPHARYN: Influenza Virus A & B Rapid Smear - ORD 03/03 234 BLOOD: Blood Culture - ORD Diagnostic Imaging: Viewed by Me: Radiology Read. Radiology Impression: SEE COMMENTS Initial ED EKG: SINUS TACHYCARDIA 138 BPM Comments: PATIENT: BILLIE BURLESON PRESENT AGE: 26 PATIENT ACCOUNT NO: [id number] : 88 LOCATION: [facility] ORDERING PHYSICIAN: KIMBERLY MANCILLA SERVICE DATE: 03/03/17 EXAM TYPE: RAD - XRY-PORTABLE CHEST XRAY EXAMINATION: XR PORTABLE CHEST CLINICAL INFORMATION: Asthma. COMPARISON: 11/14/2016 TECHNIQUE: Portable frontal view of the chest was obtained. FINDINGS: The lungs are well expanded. Mild bronchial wall thickening. There is no focal consolidation, edema, or effusion. No pneumothorax. The cardiomediastinal silhouette is within normal limits. No acute osseous abnormality. IMPRESSION: No consolidation. Bronchial wall thickening can be seen with a small airways process such as asthma or atypical/viral infection. (KIMBERLY NAZARIO) Departure Departure Disposition: STILL A PATIENT Condition: Stable Clinical Impression Primary Impression: Asthma Referrals: TYRON GLEASON,SENTHIL Tripathi (PCP/Family) Departure Forms: Customer Survey General Discharge Information Admission Note Spoke With: RADHA PETERSON MD Documentation of Exam: Documentation of any treatments & extenuating circumstances including Concerns Regarding Discharge (functional status, medication knowledge or non-compliance, living conditions, etc.) that warrant an admission rather than observation: [ Discussed patient with Dr. PETERSON who agrees with telemetry admission for concerns of asthma exacerbation which patient has failed outpatient treatment. Patient requires pulmonary consultation, repeat labs and IV steroids] (KIMBERLY NAZARIO) PA/HAND DRILLER Co-Sign Statement Statement: ED Attending supervision documentation- [] I saw and evaluated the patient. I have also reviewed all the pertinent lab results and diagnostic results. I agree with the findings and the plan of care as documented in the PA's/HAND DRILLER's documentation. [x] I have reviewed the ED Record and agree with the PA's/HAND DRILLER's documentation. [] Additions or exceptions (if any) to the PAs/HAND DRILLER's note and plan are summarized below: [] (JUAREZ GLEASON,ELZA Tripathi) Critical Care Note Critical Care Note Critical Care Time: 30-74 min (KIMBERLY NAZARIO)
--- NOTE | 2017-03-03 00:18 | NUR ---
PT FROM HOME C/O SOB. PT STATES " I WAS JUST HERE NOT EVEN 4 HRS AGO AND I WAS SENT HOME WITH PREDNISONE AND TREATMENTS, I WENT HOME TO GET IN THE SHOWER AND WAS UNABLE TO BREATHE, I BECAME MORE SOB." PT IN RM WHEEZING, 02 ON RA 93%, RT PAGED. AWAITING PROVIDER EVAL.
--- NOTE | 2017-03-03 00:35 | NUR ---
PT SAT 90% ON RA, THIS RN ADMINISTERED A DUO NEB TREATMENT PER CHARO Arrington AND EMAR, THIS RN ESTABLISHED IV ACCESS IN LAC #20. LABS DRAWN AND SENT (SST, LAV, BLUE, LARSEN) AFTER DUO NEB PT SAT 99% ON RA
--- NOTE | 2017-03-03 00:37 | NUR ---
CHARO Arrington AT BEDSIDE, RT AT BEDSIDE FOR PITER
[2017-03-03 00:45] LABS: ABSOLUTE BASOPHIL COUNT 0 /CUMM (0.0-0.2); ABSOLUTE EOSINOPHIL COUNT 0 /CUMM (0.0-0.7); ABSOLUTE GRANULOCYTE CT 12.5 /CUMM (1.4-6.5); ABSOLUTE LYMPH COUNT 0.4 /CUMM (1.2-3.4); ABSOLUTE MONOCYTE COUNT 0 /CUMM (0.10-0.60); BASOPHIL % 0.2 % (0.0-2.0); EOSINOPHIL % 0 % (0-5); GRANULOCYTE % 96.2 % (42.2-75.2); HEMATOCRIT 40.4 % (37-47); MEAN CORPUSCULAR HGB 27.3 PG (27.0-31.0); MEAN CORPUSCULAR HGB CONC 33.1 G/DL (33.0-37.0); MEAN CORPUSCULAR VOLUME 82.4 FL (81.0-99.0); MEAN PLATELET VOLUME 8.9 FL (7.4-10.4); PLATELET COUNT 184 /CUMM (130-400); RBC DISTRIBUTION WIDTH 15.8 % (11.5-14.5); RED BLOOD CELL CT 4.91 /CUMM (4.20-5.40)
--- NOTE | 2017-03-03 00:52 | NUR ---
PT MEDICATED WITH MUCINEX SEE EMAR AND 1G MAG SULFATE PER EMAR. BEDSIDE CHEST XRAY COMPLETED, EKG COMPLETED
--- NOTE | 2017-03-03 00:53 | NUR ---
EKG DONE AND SHOWN TO DR. PIZARRO, AND KIMBERLY MANCILLA.
--- NOTE | 2017-03-03 00:54 | NUR ---
PT PLACED ON MONITOR, PT RESTING IN RM WITH CONTINUOUS TREAMTMENT ON TEXTING ON CELL PHONE, WILL CONTINUE TO MONITOR
--- NOTE | 2017-03-03 01:06 | RADIOLOGY REPORT ---
EXAMINATION: XR PORTABLE CHEST CLINICAL INFORMATION: Asthma. COMPARISON: 11/14/2016 TECHNIQUE: Portable frontal view of the chest was obtained. FINDINGS: The lungs are well expanded. Mild bronchial wall thickening. There is no focal consolidation, edema, or effusion. No pneumothorax. The cardiomediastinal silhouette is within normal limits. No acute osseous abnormality. IMPRESSION: No consolidation. Bronchial wall thickening can be seen with a small airways process such as asthma or atypical/viral infection.
--- NOTE | 2017-03-03 01:29 | History & Physical ---
RASHAWN CASTILLO MD 03/03/17 0129: General Information and HPI MD Statement: I have seen and personally examined BILLIE BURLESON and documented this H&P. The patient is a 26 year old F who presented with a patient stated chief complaint of [asthma]. Source of Information: patient Exam Limitations: no limitations History of Present Illness: 26-year-old female with PMH of asthma, previous hospitalization for asthma exacerbation with intubation, psoriasis, psoriatic arhtirits, gastric sleeve, cholecystectomy, came with chief complaint of asthma attack. Patient has been in her normal state of health up until thursday night, when started to experience cough without sputum. Over the next few days, her cough has gotten worse, she started to wheeze and feel short of breath. She used her nebs and inhaler every 4-5 hours. She has not been able to lie flat since night because it exacerbates her shortness of breath. Her shortness of breath and wheezing got even worse on 03/02/17, requiring her to use nebs and inhaler every 2 hours without significant relief. She then presented to the ED, given breathing treatment and solumedrol. Subsequently felt better and was sent home. 45 minutes after getting home, she started feeling siginificantly short of breath again and was having difficulty ambulating on her own, requiring her 's help. She felt as if she was "choking". So she came back to the ED. Her O2 sat was 90% on RA. Patient received mag sulf, mucinex, solumedrol, and tylenol in he ED. Of note, her last asthma exacerbation was 5 years ago, in [place]. She was hospitalized and intubated at that time. She has been doing well ever since. She does report allergies to cats and dogs, however denies exposure to animals including dogs, cats, horses, birds. She denies sick contacts. Denies recent travel. She reports fever to 102 on 03/01/17 night. Has chest discomfort associated with deep breathing, 9/10 pain all around the chest and the back. SHe is audibly wheezing and obviously short of breath, but was able to complete her sentences. She has headache, that she usually gets when she receives neb treatments, with lightheadedness, and nausea. She has lost 71lbs in the past 2 months since gastric sleeve surgery in December 2016. Reports decreased appetite. 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 Lives with her . Denies smoking, alcohol, drug use. Meds: SHe has been on cosentyx for 5 weeks, the first 4 weeks she received it weekly, with significant improvement in psoriatic skin lesions, now she is getting it every 4 weeks. SHe is also on 20 mg prednisone at baseline for her psoriasis. 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 Home Who Do You Live With? spouse, child Services at Home: None Primary Language: Mosotho Smoking Status: Never Smoked ETOH Use: denies use Illicit Drug Use: denies illicit drug use Functional Ability ADLs Independent: dressing, eating, toileting, bathing. Ambulation: independent IADLs Independent: shopping, housework, finances, food prep, telephone, transportation , medication admin. Review of Systems Review of Systems Constitutional: Reports: see HPI, fever, weakness. Denies: chills. EENTM: Reports: see HPI (lightheaded,headache). Cardiovascular: Reports: chest pain (discomfort with breathing). Respiratory: Reports: cough, orthopnea, short of breath, wheezing. Denies: hemoptysis, sputum production. GI: Reports: nausea. Denies: abdominal pain, bloating, constipation, diarrhea. Genitourinary: Denies: dysuria. Exam & Diagnostic Data Last 24 Hrs of Vital Signs/I&O Vital Signs Date Time Temp Pulse Resp B/P B/P Pulse O2 O2 Flow FiO2 Mean Ox Delivery Rate 03/03 0135 98.8 145 20 139/70 95 Room Air 03/03 0045 99 03/03 0018 97.2 130 18 137/80 92 Room Air Intake & Output 03/03 0800 03/03 0000 03/02 1600 Intake Total Output Total Balance Patient 127.006 kg Weight Weight Reported by Patient Measurement Method Physical Exam General Appearance Alert, Oriented X3, Cooperative, respiratory distress, noticably short of breath and wheezing Skin psoriatic lesions all over, no acute flareup HEENT Atraumatic, PERRLA, EOMI, dry mucous membranes Neck Supple, +2 Carotid Pulse wo Bruit Lymphatic Axillary nl, Cervical nl Cardiovascular Normal S1, Normal S2, No Murmurs, Gallops, Rubs, tachycardic Lungs diffuse inspiratory and expiratory wheezing Abdomen Normal Bowel Sounds, Soft, No Tenderness Extremities No Edema, Normal Pulses, No Tenderness/Swelling Vascular Normal Pulses, Pulses Symmetrical, normal cap refill Last 24 Hrs of Labs/Tamir: Laboratory Tests 03/03/17 0200: Magnesium Cancelled 03/03/17 0034: Anion Gap 21 H, Estimated GFR > 60, BUN/Creatinine Ratio 8.6, Glucose 203 H, Calcium 9.8, Phosphorus 3.0, Magnesium 1.6, Total Bilirubin 0.6, AST 33, ALT 24, Alkaline Phosphatase 54, Total Protein 7.3, Albumin 4.2, Globulin 3.1, Albumin/ Globulin Ratio 1.4, Total Beta HCG NEGATIVE, CBC w Diff MAN DIFF ORDERED, RBC 4.91, MCV 82.4, MCH 27.3, RDW 15.8 H, MPV 8.9, Gran % 96.2 H, Lymphocytes % 3.3 L, Monocytes % 0.3 L, Eosinophils % 0, Basophils % 0.2, Absolute Granulocytes 12.5 H, Absolute Lymphocytes 0.4 L, Absolute Monocytes 0 L, Absolute Eosinophils 0, Absolute Basophils 0, Platelet Estimate ADEQUATE, Polychromasia 1+, PUBS MCHC 33.1 Microbiology 03/03 234 URINE ROUT: Legionella Antigen - ORD 03/03 234 URINE ROUT: Streptococcus pneumoniae Antigen (M - ORD 03/03 234 LOWER RESP: Respiratory Culture - ORD 03/03 234 LOWER RESP: Gram Stain - ORD 03/03 234 NASOPHARYN: Influenza Virus A & B Rapid Smear - ORD 03/03 234 BLOOD: Blood Culture - ORD 03/03 234 BLOOD: Blood Culture - ORD Diagnostic Data EKG Results SR rate 138 Non specific T wave change CXR Results EXAM TYPE: RAD - XRY-PORTABLE CHEST XRAY EXAMINATION: XR PORTABLE CHEST CLINICAL INFORMATION: Asthma. COMPARISON: 11/14/2016 TECHNIQUE: Portable frontal view of the chest was obtained. FINDINGS: The lungs are well expanded. Mild bronchial wall thickening. There is no focal consolidation, edema, or effusion. No pneumothorax. The cardiomediastinal silhouette is within normal limits. No acute osseous abnormality. IMPRESSION: No consolidation. Bronchial wall thickening can be seen with a small airways process such as asthma or atypical/viral infection. DICTATED BY: REGLA GLEASON,FELECIA DATE/TIME DICTATED:03/03/17100 Assessment/Plan Assessment: 26-year-old female with PMH of asthma, previous hospitalization for asthma exacerbation with intubation, psoriasis, psoriatic arhtirits, gastric sleeve, cholecystectomy, came with chief complaint of asthma attack. She was in respiratory distress, audibly wheezing, difficulty completing her sentence, despite having received solumedrol and breathing treatment. She did report fever to 102 at home, however has been afebrile here. She does have a wbc of 13, without bands, which could be due to chronic steroids use. She was tachycardic to 150s with palpitations, most likely due to albuterol administration. It is not clear why she has elevated anion gap at this point. Patient admitted to telemetry for asthma excacerbation Problem list: # Asthma exacerbation # Tachycardia # Headache # Hypokalemia # Anion gap 21H # Asthma exacerbation, possible viral bronchitis - CXR no consolidation. bronchial wall thickening could be due asthma vs atypical/viral * Low threshold for ICU transfer for intubation if patient deteriorates * Solumedrol 40 IV Q 6 * Tessalon for cough * TRC nebs * monitor off abx, start abx if pt spikes fever * follow up flu, bcx2, lrc, urine legionella, strep pneumo * pulm consult in am # Anion gap metabolic acidosis , bicarb 15 anion gap 21H, lactic acidosis lactic acid 6.4, most likely due to respiratory failure due to severe asthma. Likely respiratory acidosis as well. - delta/delta 0.89, suggests concurrent non anion gap metabolic acidosis * Follow utox and serum alcohol * 150ml/hr NS * f/u ABG # Tachycardia, most likely due to albuterol use - EKG SR 138, HR was up to 150 on the monitor * Monitor on telemetry # Headache - tramadol no significant relief * PP: tramadol 50 q6 severe, roxicodone 5mg q4-6prn moderate, vicodin 1tab q6p moderate, tylenol po q6p mild # Hypokalemia, could be due to albuterol use - K 3.2 * Replete as needed # Psoriasis * Continue home meds consentix at discharge (not due for another 4 weeks), resume prednisone at discharge Diet: regular diet DVT ppx: mech and heparin sc PP: tramadol 50 q6 severe, roxicodone 5mg q4-6prn moderate, vicodin 1tab q6p moderate, tylenol po q6p mild FULL CODE As Ranked By This Provider Problem List: 1. Asthma exacerbation Core Measures/Miscellaneous Acute Coronary Syndrome ACS Diagnosis: No Cerebrovascular Accident CVA/TIA Diagnosis: No Congestive Heart Failure CHF Diagnosis: No Venous Thromboembolism VTE Risk Factors: Obesity No Mech VTE prophylaxis d/t: No contraindications No VTE Pharm Prophylaxis d/t: No contraindications VTE Diagnosis: No VTE Type: NONE VTE Confirmed by (Test): NONE Severe Sepsis Severe Sepsis Present: No Septic Shock Septic Shock Present: No Miscellaneous Documentation Attending Case Discussed With: RADHA PETERSON MD Primary Care Physician: SENTHIL ACKERMAN MD Patient sees these Specialists Dr. Johnathan Butler mail service coordinator at [place] Level of Patient Care: Telemetry CHICO SCHAFER 03/03/17 0131: General Information and HPI Allergies/Medications Home Med list Albuterol Sulfate (Proair Hfa) 8.5 GM HFA.AER.AD 2 PUF INH PRN ASTHMA ( Reported) Albuterol Sulfate 1.25 MG/3 ML VIAL.NEB 1 Vial INH/PATTI Q4-6 PRN ASTHMA Benzonatate (Tessalon Perle) 100 MG CAPSULE 1 CAP PO TID PRN COUGH Codeine Phosphate/Guaifenesi (Cheratussin AC Syrup) 10 MG-100 MG/5 ML LIQUID 10 ML PO TID PRN COUGH Prednisone 20 MG TABLET 1 TAB PO BID psoriac arthritis Secukinumab (Cosentyx Pen (2 Pens)) 150 MG/ML PEN.INJCTR 350 MG PO Q30D PSORIATIC ARTHRITIS (Reported) Resident Review Statement Resident Statement: examined this patient, discussed with manager of internal audit, agreed with manager of internal audit, discussed with family, reviewed EMR data (avail), discussed with nursing , discussed with case mgmt, reviewed images, amended to note Other Findings: 26-year-old female with a past medical history of asthma exacerbation, psoriatic arthritis, psoriasis with a recent flare currently on prednisone 20 mg daily senna to the ED with chief complaints of shortness of breath, nonproductive cough. According to the patient she was in her usual state of health up until Thursday despite 4 days ago when she started to first experience cough that progressively worsened associated with shortness of breath and wheezing. She states that she was taking her rescue inhalers every 4 hours however since this morning she been taking it every 2 hours or so with no improvement in her symptoms. She does endorse having fever 102F last evening, denies any chills, any history of sick contact, any exposure to allergens including cats, dust, pollen. Of note she is a mpjy-rz-uqas mom and her kids have not been sick recently. She also endorses chest discomfort that she grades as a 9 out of 10 which is diffuse around her rib cage because of coughing and states that her pain gets worse every time she takes a deep breath. Denies any dizziness however does endorse palpitations, nausea and headache. Denies any vomiting, abdominal pain, alterations in bowel movements, urinary frequency, urgency. She denies smoking, any history of alcohol or recreational drug use. She states that she was last admitted in the hospital for asthma exacerbation but 5 years ago while she was in [place] before moving to [place]. At that time she was intubated. She does have a history of being intubated for asthma exacerbation twice in the past. However, her symptoms have been pretty stable within 5 years. Of note she was seen in the ER earlier today was given nebulizer treatment with complete resolution of her symptoms after which she went home. She states that she was doing well for 45 minutes to an hour when she took a shower and her symptoms recurred which is why she presented back to the ER. Vitals at the time of admission blood pressure 137/80, tachycardic to 130, respiratory rate of 18, afebrile saturating 92% on room air. On physical exam she is alert, oriented 3 and in mild respiratory distress sitting comfortably in bed. HEENT revealed PERRLA, dry mucous membranes. Examination of the neck did not reveal an elevated JVP, cervical lymphadenopathy. Cardio vascular exam was pertinent for tachycardia with a heart rate of 140s, normal S1, S2, no murmurs rubs or gallops appreciated. Respiratory exam was pertinent for bilateral wheeze on our expiratory. Abdominal exam is benign abdomen soft, nontender, nondistended with positive in all 4 quadrants and well-healed surgical scars for epigastric bypass surgery. Examination of the lower extremities did not reveal any edema or asymmetrical swelling. Neurological exam was grossly unremarkable with cranial nerves II through XII grossly intact, strength 5 out of 5 in all 4 tremors. Labs pertinent for an H&H of 13.4/40.4, leukocytosis with a white blood cell count of 13,000, no bands and no left shift, platelet count 184,000. Serum chemistries pertinent for a normal sodium 142, hypokalemia of 3.2, bicarbonate of 15, elevated anion gap of 21 with a BUN of 6 and a creatinine of 0.7. Her serum glucose was elevated to 203. LFTs unremarkable with an AST/L2 33/24, alkaline phosphatase of 54. Beta-hCG was negative. Chest x-ray did not reveal consolidation, did show bronchial wall thickening in small airways. EKG revealed sinus tachycardia with a heart rate of 138, borderline left axis deviation, nonspecific ST-T changes and precordial leads. In the ER she received Mucinex, and P trial 2, ipratropium 1 and max sulfate 1 g. Assessment and plan Admit to telemetry given his tachycardia most likely induced from receiving nebulizer treatment #Dyspnea most likely secondary to acute asthma exacerbation Start her on Solu-Medrol 40 mg every 6 F/U lower respiratory culture, urinary antigens for Legionella and strep pneumo, blood cultures 2 and a rapid flu was. We'll also check a urine tox as well as serum alcohol level. TRC nebs If she spikes a temperature we'll consider starting her on antibiotics. For now basurto off any antimicrobials. Follow-up an ABG Replete with another gram of magnesium sulfate she received 1 g done in the ER. #Anion gap metabolic acidosis Most likely secondary to lactic acidosis Follow-up lactic acid level #Sinus tachycardia Most likely secondary to receiving [facility] versus dehydration Hydrate with IV fluids of normal saline running at 150 mg per hour Continue to monitor telemetry for now #Hypokalemia Most likely having received the diagnosis We'll replete with K Dur 40mEq - DVT prophylaxis Heparin 5000 international units 3 times a day subcutaneous - Diet Regular - CODE STATUS Full code RADHA PETERSON 03/03/17 0511: Attending MD Review Statement Attending Statement Attending MD Statement: examined this patient, discuss w/resident/PA/ORAL PATHOLOGIST, agreed w/resident/PA/ORAL PATHOLOGIST, reviewed EMR data (avail), reviewed images, amended to note Attending Assessment/Plan: CC: Asthma exacerbation PMH: Asthma requiring intubation in the past Patient came to ER for worsening cough and shortness of breath since 4 days, she was using increased nebulization at home every 2 hours without much relief. So patient came to ER earlier today, was treated with hour-long albuterol treatment IV methylprednisolone and was discharged home, after she was feeling better. But once she was home she noticed again worsening of symptoms within 45 minutes so she came back to ER. Patient denies any sick contact, chills, sputum production endorses fever of 102 at home with mild chest discomfort secondary to cough and headache. Vitals: Afebrile, severe leg tachycardic, RR 20, blood pressure 139/70, saturating 99% on room air. On exam: A O 3, cooperative, obese, moderate respiratory distress, patient can complete 1 sentence at a stretch, accessory muscles in use, neck supple, JVD normal, no lymphadenopathy, mucosa dry, no focal neurological deficit, no dependent edema, no obvious skin rashes or inflammation CVS: S1-S2, RRR. RS: Diffuse wheezing bilaterally all lung scott. Abdomen: Soft, NT, ND, bowel sounds present. Labs: WBC 13.0,neutrophils 96%, sodium 142, potassium 3.2, chloride 107, bicarbonate 15, anion gap 21, BUN 6, glucose 203, lactic acid 6.4, LFT unremarkable CXR: No consolidation. Bronchial wall thickening can be seen with a small airways process such as asthma or atypical/viral infection. A and P Patient presented in ER for worsening cough and shortness of breath without sputum production since 4 days. She endorses fever but has been off febrile in ER. She has mild leukocytosis which can be probably secondary to recent steroid use. Patient received several doses of albuterol nebulization throughout the day , which may have precipitated severe sinus tachycardia, but given the persistently elevated heart rate in 140s patient will benefit from telemetry monitoring. Currently no definite source of infection identified, no pneumonia. Influenza should be ruled out. Patient also has significant metabolic acidosis with anion gap lactic acidosis. + Asthma exacerbation + Lactic acidosis + Anion gap metabolic acidosis - Admit on telemetry - Continuous telemetry monitoring - IV methylprednisolone 40 mg every 6 hours - Albuterol scheduled and when necessary with TRC - Check influenza nasal swab, blood culture - Continue IV normal saline at 150 mL per hour - ABG if worsening respiratory status or if patient appears tired. - Repeat CBC, BMP, lactate in a.m. - Replace potassium by mouth - Check U tox and blood alcohol. - DVT prophylaxis with Lovenox
--- NOTE | 2017-03-03 01:30 | NUR ---
PT MEDICATED WITH 650MG TYLENOL PO PER EMAR.
--- NOTE | 2017-03-03 01:45 | NUR ---
HOUSE STAFF IN FOR EVAL
--- NOTE | 2017-03-03 02:21 | NUR ---
PT MEDICATD WITH 50MG ULTRAM PO AND 40MEQ KDUR PO PER EMAR.
--- NOTE | 2017-03-03 02:26 | NUR ---
PT BED ASSIGNMENT 171-1
--- NOTE | 2017-03-03 02:38 | NUR ---
REPORT GIVEN TO FABY LUCERO.
--- NOTE | 2017-03-03 05:14 | Admission Certification ---
Admission Certification Certification Statement - As attending physician, I certify that at the time of - admission, based on clinical presentation, severity of - symptoms, need for further diagnostic testing and - therapeutic interventions, and risk of adverse outcomes - without in-hospital treatment, in my clinical assessment, - this patient requires an acute hospital stay for a minimum - of two nights or longer. I have also considered psychsocial - factors such as support system, advanced age, financial - issues, cognitive issues, and failed out-patient treatments, - past re-admission history, safety of patient, and lack of - compliance as applicable. Specific rationale supporting this admission is: Asthma exacerbation
--- NOTE | 2017-03-03 07:49 | NUR ---
0620 02 SAT 89%-91%, PT C/O SOB AND REQUESTING NEB TX. 02 INCREASED FROM 1LNC TO 2LNC. RESPIRATORY PAGED AND NEB TX ADMINISTERED. 02 SAT REMAINS 90%-94% WILL CONTINUE TO MONITOR.
[2017-03-03 08:00] VITALS: BP 140/60
[2017-03-03 11:22] LABS: ABSOLUTE BASOPHIL COUNT 0 /CUMM (0.0-0.2); ABSOLUTE EOSINOPHIL COUNT 0 /CUMM (0.0-0.7); ABSOLUTE LYMPH COUNT 0.5 /CUMM (1.2-3.4); ABSOLUTE MONOCYTE COUNT 0.2 /CUMM (0.10-0.60); BASOPHIL % 0.2 % (0.0-2.0); EOSINOPHIL % 0 % (0-5); MEAN CORPUSCULAR HGB 27.1 PG (27.0-31.0); MEAN CORPUSCULAR VOLUME 82.1 FL (81.0-99.0); MEAN PLATELET VOLUME 9.2 FL (7.4-10.4); PLATELET COUNT 176 /CUMM (130-400); RBC DISTRIBUTION WIDTH 15.7 % (11.5-14.5); RED BLOOD CELL CT 4.32 /CUMM (4.20-5.40); WHITE BLOOD CELL COUNT 13.7 /CUMM (4.8-10.8)
[2017-03-03 11:33] LABS: HEMATOCRIT 35.4 % (37-47)
--- NOTE | 2017-03-03 11:35 | PN- Att Addend ---
See Addendum Attending Addendum Attending Brief Note Patient seen and examined, not feeling well. Still feeling very short of breath and also c/o headache. Still wheezing. Vital Signs Date Time Temp Pulse Resp B/P B/P Pulse O2 O2 Flow FiO2 Mean Ox Delivery Rate 03/03 0800 93 Nasal 2.0L Cannula 03/03 08 98.1 123 20 140/60 93 Room Air 03/03 0706 96 Nasal 2.0L Cannula 03/03 0348 94 Nasal 1.0L Cannula 03/03 0135 98.8 145 20 139/70 95 Room Air 03/03 0045 99 03/03 0018 97.2 130 18 137/80 92 Room Air on exam; aox3, mild distress 2/2 to sob. cv; s1, s2, rrr, tachycardic resp; wheeze b/l abd: soft, nt, bs+ ext; no edema. Laboratory Tests 03/03 03/03 03/03 0925 0645 0410 Blood Gas pH (7.35 - 7.45 PH) 7.45 pCO2 (35 - 45 TORR) 28 L pO2 (80 - 100 TORR) 81 HCO3 (21 - 28 MEQ/L) 19 L ABG O2 Sat (Measured) (>96.0 %) 95.0 L Carboxyhemoglobin (1.5 - 5.0 %) 0.5 L O2 Concentration % 2 LPM O2 Delivery Method NC Chemistry Sodium (137 - 145 mmol/L) 139 Potassium (3.5 - 5.1 mmol/L) 3.8 Chloride (98 - 107 mmol/L) 109 H Carbon Dioxide (22 - 30 mmol/L) 21 L Anion Gap (5 - 16) 9 BUN (7 - 17 mg/dL) 6 L Creatinine (0.5 - 1.0 mg/dL) 0.6 Estimated GFR (>60 ml/min) > 60 BUN/Creatinine Ratio (7 - 25 %) 10.0 Lactic Acid (0.7 - 2.1 mmol/L) 0.9 Magnesium (1.6 - 2.3 mg/dL) 1.9 Troponin I (< 0.11 ng/ml) Pending Hematology CBC w Diff Pending WBC Pending RBC Pending Hgb Pending Hct Pending MCV Pending MCH Pending RDW Pending Plt Count Pending MPV Pending PUBS MCHC Pending Miscellaneous Phlebotomy Draw Site RIGHT BRACHIAL Toxicology Urine Opiates Screen (>2000 NG/ML) > 4000.00 H Methadone Screen (>300 NG/ML) < 40 Barbiturate Screen (>200 NG/ML) < 60 Ur Phencyclidine Scrn (>25 NG/ML) < 6.00 Amphetamines Screen (>1000 NG/ML) < 100 U Benzodiazepines Scrn (>200 NG/ML) < 85 Urine Cocaine Screen (>300 NG/ML) < 50 Urine Cannabis Screen (>50 NG/ML) > 80.00 H 03/03 03/03 03/03 0325 0200 0034 Chemistry Sodium (137 - 145 mmol/L) 142 Potassium (3.5 - 5.1 mmol/L) 3.2 L Chloride (98 - 107 mmol/L) 107 Carbon Dioxide (22 - 30 mmol/L) 15 L Anion Gap (5 - 16) 21 H BUN (7 - 17 mg/dL) 6 L Creatinine (0.5 - 1.0 mg/dL) 0.7 Estimated GFR (>60 ml/min) > 60 BUN/Creatinine Ratio (7 - 25 %) 8.6 Glucose (65 - 99 mg/dL) 203 H Lactic Acid (0.7 - 2.1 mmol/L) 6.3 H 6.4 H Calcium (8.4 - 10.2 mg/dL) 9.8 Phosphorus (2.5 - 4.5 mg/dL) 3.0 Magnesium (1.6 - 2.3 mg/dL) Cancelled 1.6 Total Bilirubin (0.2 - 1.3 mg/dL) 0.6 AST (14 - 36 U/L) 33 ALT (9 - 52 U/L) 24 Alkaline Phosphatase (<127 U/L) 54 Troponin I (< 0.11 ng/ml) < 0.01 Total Protein (6.3 - 8.2 g/dL) 7.3 Albumin (3.5 - 5.0 g/dL) 4.2 Globulin (1.9 - 4.2 gm/dL) 3.1 Albumin/Globulin Ratio (1.1 - 2.2 %) 1.4 TSH (0.270 - 4.200 uIU/mL) 0.159 L Thyroxine (T4) (4.5 - 10.9 ug/dL) 9.6 Total Beta HCG (NEGATIVE) NEGATIVE Hematology CBC w Diff MAN DIFF ORDERED WBC (4.8 - 10.8 /CUMM) 13.0 H RBC (4.20 - 5.40 /CUMM) 4.91 Hgb (12.0 - 16.0 G/DL) 13.4 Hct (37 - 47 %) 40.4 MCV (81.0 - 99.0 FL) 82.4 MCH (27.0 - 31.0 PG) 27.3 RDW (11.5 - 14.5 %) 15.8 H Plt Count (130 - 400 /CUMM) 184 MPV (7.4 - 10.4 FL) 8.9 Gran % (42.2 - 75.2 %) 96.2 H Lymphocytes % (20.5 - 51.1 %) 3.3 L Monocytes % (1.7 - 9.3 %) 0.3 L Eosinophils % (0 - 5 %) 0 Basophils % (0.0 - 2.0 %) 0.2 Absolute Granulocytes (1.4 - 6.5 /CUMM) 12.5 H Absolute Lymphocytes (1.2 - 3.4 /CUMM) 0.4 L Absolute Monocytes (0.10 - 0.60 /CUMM) 0 L Absolute Eosinophils (0.0 - 0.7 /CUMM) 0 Absolute Basophils (0.0 - 0.2 /CUMM) 0 Platelet Estimate (ADEQUATE) ADEQUATE Polychromasia 1+ PUBS MCHC (33.0 - 37.0 G/DL) 33.1 Toxicology Serum Alcohol (<10 MG/DL) < 10.0 A/P; 26 y/o F with pmh sig for asthma with the previous serious exacerbation 5 years ago that required intubation but afterwards there was not such a bad exacerbation, psoriasis, psoriatic arhtirits, recent gastric sleeve surgery about 8 weeks ago, cholecystectomy, who is admitted with acute respiratory failure likely secondary to asthma exacerbation secondary to patient's recent gastric sleeve surgery, tachycardia and respiratory alkalosis on ABG, we need to rule out pulmonary embolism. Patient will be continued on IV steroids and by mouth symptoms. Will obtain a CT of the chest. Patient is also complaining of migraine headache, we will try tramadol along with Fioricet. If that does not work then we have to try low-dose morphine because he cannot use any NSAIDS with patient's recent surgery. Continue all other current medications. GI prophylaxis: Prilosec. DVT prophylaxis: Heparin subcutaneous.
[2017-03-03 12:12] LABS: GRANULOCYTE % 94.8 % (42.2-75.2)
--- NOTE | 2017-03-03 13:25 | CT SCAN REPORT ---
EXAMINATION: CT ANGIOGRAM CHEST CLINICAL INFORMATION: Sudden onset shortness of breath. COMPARISON: Same-day chest radiograph. CT abdomen and pelvis 01/22/2016. TECHNIQUE: Multiple axial images were obtained through the chest after the administration of 60 mL of Optiray 350 intravenous contrast. Postcontrast images were obtained at thin axial sections with multiplanar and MIP reformatted images. DLP: 1035 mGy-cm. FINDINGS: No pulmonary arterial filling defects to indicate embolic disease. Bibasilar atelectasis/consolidations. No pleural or pericardial effusion. No mediastinal, hilar, or axillary adenopathy. No aortic aneurysm or dissection. The visualized upper abdomen is unremarkable. Evidence of gastric bypass surgery and diffuse fatty infiltration of the liver. IMPRESSION: 1. No evidence of pulmonary embolism. 2. Mild bibasilar atelectasis versus consolidation. 3. Diffuse fatty infiltration of the liver.
[2017-03-03 15:30] VITALS: BP 124/78
[2017-03-04 01:13] VITALS: BP 118/64
[2017-03-04 08:04] LABS: ABSOLUTE BASOPHIL COUNT 0 /CUMM (0.0-0.2); ABSOLUTE EOSINOPHIL COUNT 0 /CUMM (0.0-0.7); ABSOLUTE GRANULOCYTE CT 14.2 /CUMM (1.4-6.5); ABSOLUTE LYMPH COUNT 0.7 /CUMM (1.2-3.4); ABSOLUTE MONOCYTE COUNT 0.2 /CUMM (0.10-0.60); BASOPHIL % 0.1 % (0.0-2.0); EOSINOPHIL % 0 % (0-5); HEMATOCRIT 37.3 % (37-47); MEAN CORPUSCULAR HGB 27.4 PG (27.0-31.0); MEAN CORPUSCULAR VOLUME 82.9 FL (81.0-99.0); MEAN PLATELET VOLUME 9.1 FL (7.4-10.4); PLATELET COUNT 201 /CUMM (130-400); RED BLOOD CELL CT 4.49 /CUMM (4.20-5.40); WHITE BLOOD CELL COUNT 15.1 /CUMM (4.8-10.8)
[2017-03-04 08:17] VITALS: BP 120/80
[2017-03-04 08:58] LABS: GRANULOCYTE % 93.4 % (42.2-75.2)
--- NOTE | 2017-03-04 09:28 | PN- Housestaff ---
KOMAL ESTRADA 03/04/17 0911: Subjective Follow-up For: Asthma exacerbation Headache Tele-Events Since Last Visit: Sinus rhythm Subjective: Doesn't feel much improvement in her breathing status. On 3 L oxygen currently. No further episodes of palpitations, except for during breathing treaments. Feels congested, with some phlegm production. No fevers or chills. has persistent headache, history of migraines, resolved by morphine use. No chest pain. Review of Systems Constitutional: Reports: see HPI. Objective Last 24 Hrs of Vital Signs/I&O Vital Signs Date Time Temp Pulse Resp B/P B/P Pulse O2 O2 Flow FiO2 Mean Ox Delivery Rate 03/04 0817 97.9 74 20 120/80 93 Nasal 3.0L Cannula 03/04 0754 92 Nasal 3.5L Cannula 03/04 0113 97.8 83 20 118/64 90 Nasal Cannula 03/04 0000 90 Nasal 3.5L Cannula 03/03 1625 94 Nasal 2.0L Cannula 03/03 1600 Nasal 2.0L Cannula 03/03 1530 98.4 111 16 124/78 94 Nasal 2.0L Cannula 03/03 1125 94 Nasal 2.0L Cannula 03/03 1100 Nasal 2.0L Cannula Intake & Output 03/04 1600 03/04 0800 03/04 0000 Intake Total 200 240 Output Total Balance 200 240 Intake, Oral 200 240 Physical Exam General Appearance: Alert, Oriented X3, Cooperative, Mild Distress HEENT: Atraumatic, Mucous Membr. moist/pink Neck: Supple, No JVD Cardiovascular: Regular Rate, Normal S1, Normal S2 Lungs: Decreased air entry, bilateral diffuse expiratory and inspiratory wheezing. Upper airway wheezing 2/2 retained tracheal secretions. Abdomen: Normal Bowel Sounds, Soft, No Tenderness Extremities: No Clubbing, No Cyanosis, No Edema Vascular: Normal Pulses, Pulses Symmetrical Current Medications: Current Medications Sig/Jeanne Start time Last Medication Dose Route Stop Time Status Admin Acetaminophen 650 MG Q6P PRN 03/03 0145 AC PO Acetaminophen/ 1 TAB Q4P PRN 03/03 1015 DC Butalbital/Caffeine PO Acetaminophen/ 1 TAB ONCE ONE 03/03 1015 DC 03/03 Butalbital/Caffeine PO 03/03 1016 1052 Albuterol Sulfate 3 ML EVERY 4 HRS/AWAKE 03/03 1200 AC 03/04 INH 0751 Albuterol Sulfate 2 PUF Q4 03/03 0600 UT 03/03 INH 0948 Benzonatate 100 MG TID PRN 03/03 0245 AC PO Guaifenesin 600 MG Q12 03/04 1000 AC PO Heparin Sodium 5,000 UNIT Q8 03/03 0600 AC 03/04 (Porcine) SC 0537 Hydromorphone HCl 2 MG Q6P PRN 03/03 2045 DC 03/03 PO 2041 Ketorolac 30 MG ONCE ONE 03/04 05 DC Tromethamine IV 03/04 0531 Methylprednisolone 40 MG Q6 03/03 0600 AC 03/04 IV 0536 Morphine Sulfate 2 MG Q6P PRN 03/04 0745 AC IV Morphine Sulfate 2 MG ONCE ONE 03/04 06 DC 03/04 IV 03/04 0601 0551 Morphine Sulfate 2 MG ONCE ONE 03/04 0115 DC 03/04 IV 03/04 0116 0118 Morphine Sulfate 2 MG ONCE ONE 03/03 1845 DC 03/03 IV 03/03 1846 1851 Omeprazole 40 MG DAILY AC 03/03 0838 AC 03/04 PO 0536 Oxycodone HCl 5 MG Q4-6 PRN PRN 03/03 0145 DC 03/03 PO 0614 Sodium Chloride 1,000 ML .Q6H40M 03/03 0415 DC 03/03 IV 03/03 1734 0953 Sodium Chloride 1,000 ML ONCE ONE 03/03 0245 DC 03/03 IV 03/03 0924 0315 Tramadol HCl 50 MG Q6 PRN 03/03 0215 AC 03/03 PO 0946 Last 24 Hrs of Lab/Atmir Results Last 24 Hrs of Labs/Mics: Laboratory Tests 03/04/17 0600: CBC w Diff NO MAN DIFF REQ, RBC 4.49, MCV 82.9, MCH 27.4, RDW 16.0 H, MPV 9.1, Gran % 93.4 H, Lymphocytes % 4.9 L, Monocytes % 1.6 L, Eosinophils % 0, Basophils % 0.1, Absolute Granulocytes 14.2 H, Absolute Lymphocytes 0.7 L, Absolute Monocytes 0.2, Absolute Eosinophils 0, Absolute Basophils 0, PUBS MCHC 33.0 03/03/17 0925: Anion Gap 9, Estimated GFR > 60, BUN/Creatinine Ratio 10.0, Lactic Acid 0.9, Magnesium 1.9, Troponin I < 0.01, CBC w Diff NO MAN DIFF REQ, RBC 4.32, MCV 82.1 , MCH 27.1, RDW 15.7 H, MPV 9.2, Gran % 94.8 H, Lymphocytes % 3.7 L, Monocytes % 1.3 L, Eosinophils % 0, Basophils % 0.2, Absolute Granulocytes 13.0 H, Absolute Lymphocytes 0.5 L, Absolute Monocytes 0.2, Absolute Eosinophils 0, Absolute Basophils 0, PUBS MCHC 33.0 Assessment/Plan Assessment: 26 year old woman here with sudden onset shortness of breath, recent sleeve gastrectomy, PE ruled out with a CTA currently on telemetry for asthma exacerbation and inappropriate sinus tachycardia (or exacerbated bt breathing treatments). 1. Asthma exacerbation: Slight improvement on pulmonary exam, but still requiring high amounts of O2 via nasal cannula. No recent travels or sick contacts. Collect sputum for culture. Mucinex ER. TRC neb. Will benefit from pulmonary evaluation, given lack of improvement and to establish care with pulmonary for this intensity of exacerbations. Pulmonary consult. ? Role of azithromycin to cover for atypical bronchitis leading to current episode of exacerbation, and also for anti inflammatory effect. Await sputum evaluation. Incentive spirometry, evidence of atelectasis on CT scan. Continue IV steroids. 2. Headache : Patient states she has migraine headaches, no formal diagnosis. No preceding aura. Never been on Triptans. Potential DDs include tension type headache(given band like pattern of headaches), or Pseudotumor cerebri, given demographic likelihood and BMI. Will benefir from formal Neuro evaluation as an outpatient, and perhaps better management of her once a month "migraine episodes ". Continue IV Morphine for now. No NSAIDs given recent sleeve gastrectomy. Full code DVT proph pharm Regular diet Problem List: 1. Headache Pain Ratin Pain Location: Head Pain Goal: Pain 4 or less Pain Plan: IV morphine Tomorrow's Labs & Rationales: Not needed TIMI CORTES MD 03/04/17 1207: Attending MD Review Statement Attending Statement Attending MD Statement: examined this patient, discuss w/resident/PA/DUCK OPERATOR, agreed w/resident/PA/DUCK OPERATOR, reviewed EMR data (avail), discussed with nursing, discussed with case mgmt, reviewed images, amended to note Attending Assessment/Plan: Patient seen and examined, denies any improvement in her breathing. Her headache is slightly better. She received Dilaudid yesterday which made her drop her O2 sats. Her headache is improved with morphine. Heart rate is better. Vital Signs Date Time Temp Pulse Resp B/P B/P Pulse O2 O2 Flow FiO2 Mean Ox Delivery Rate 03/04 0817 97.9 74 20 120/80 93 Nasal 3.0L Cannula 03/04 0754 92 Nasal 3.5L Cannula 03/04 0113 97.8 83 20 118/64 90 Nasal Cannula 03/04 0000 90 Nasal 3.5L Cannula 03/03 1625 94 Nasal 2.0L Cannula 03/03 1600 Nasal 2.0L Cannula 03/03 1530 98.4 111 16 124/78 94 Nasal 2.0L Cannula on exam; aox3, nad. cv; s1, s2, rrr resp; + b/l wheezing. abd; soft, nt, bs+ ext; no edema Laboratory Tests 03/04 03/04 1100 0600 Chemistry Sodium (137 - 145 mmol/L) 142 Potassium (3.5 - 5.1 mmol/L) 3.8 Chloride (98 - 107 mmol/L) 105 Carbon Dioxide (22 - 30 mmol/L) 23 Anion Gap (5 - 16) 14 BUN (7 - 17 mg/dL) 9 Creatinine (0.5 - 1.0 mg/dL) 0.7 Estimated GFR (>60 ml/min) > 60 BUN/Creatinine Ratio (7 - 25 %) 12.9 Hematology CBC w Diff NO MAN DIFF REQ WBC (4.8 - 10.8 /CUMM) 15.1 H RBC (4.20 - 5.40 /CUMM) 4.49 Hgb (12.0 - 16.0 G/DL) 12.3 Hct (37 - 47 %) 37.3 MCV (81.0 - 99.0 FL) 82.9 MCH (27.0 - 31.0 PG) 27.4 RDW (11.5 - 14.5 %) 16.0 H Plt Count (130 - 400 /CUMM) 201 MPV (7.4 - 10.4 FL) 9.1 Gran % (42.2 - 75.2 %) 93.4 H Lymphocytes % (20.5 - 51.1 %) 4.9 L Monocytes % (1.7 - 9.3 %) 1.6 L Eosinophils % (0 - 5 %) 0 Basophils % (0.0 - 2.0 %) 0.1 Absolute Granulocytes (1.4 - 6.5 /CUMM) 14.2 H Absolute Lymphocytes (1.2 - 3.4 /CUMM) 0.7 L Absolute Monocytes (0.10 - 0.60 /CUMM) 0.2 Absolute Eosinophils (0.0 - 0.7 /CUMM) 0 Absolute Basophils (0.0 - 0.2 /CUMM) 0 PUBS MCHC (33.0 - 37.0 G/DL) 33.0 A/P; 26 y/o F with pmh sig for asthma with the previous serious exacerbation 5 years ago that required intubation but afterwards there was not such a bad exacerbation, psoriasis, psoriatic arhtirits, recent gastric sleeve surgery about 8 weeks ago, cholecystectomy, who is admitted with acute respiratory failure likely secondary to asthma exacerbation. Pulmonary embolism was ruled out. Headache improved with morphine. We will likely switch her to oral regimen tomorrow. Continue IV steroids times another 24 hours. Can DC telemetry as heart rate is improved. Continue TRC nebs. Patient should not get any NSAIDS 2/2 to recent gastric surgery. DVT px: Hep sq. DC tele.
--- NOTE | 2017-03-04 15:10 | Discharge Summary ---
See Addendum Visit Information Visit Dates Admission Date: 03/03/17 Discharge Date: 03/06/17 Hospital Course Course Attending Physician: RADHA PETERSON MD Primary Care Physician: TYRON GLEASON,SENTHIL Tripathi Hospital Course: Gifty presented to [facility] ED with symptoms of worsening cough and shortness of breath of 4 days duration, which required increased nebulization use at home, as frequent as every 2 hours without much relief. This prompted patient's visit to the ED on 03/03/2017. In the ED patient was treated with albuterol treatment along with IV methylprednisolone, and soon after was discharged home, only to come back to the ED and endorsed a fever of 102 at home. Additionally, she complained of mild chest discomfort secondary to constant coughing. In the ED, patient was afebrile, tachycardic, tachypneic and had saturations 99% on room air. Physical exam was significant for diffuse wheezing bilaterally in all lung scott. Labs revealed a white count of 13,000, lactic acid of 6.4 with anion gap of 21. Chest x-ray reveals no consolidation, it did reveal bronchial wall thickening, suggesting a small airway process. 1. Hypoxemic respiratory failure secondary to acute asthma exacerbation: Patient was started on IV steroids, and provided with nebulas or treatments [id number]. Patient's respiratory symptoms improved slightly in the beginning. But her abrupt shortness of breath and persistent tachycardia, prompted us to get a CTA to rule out an embolus. CTA remained negative, and no other pathologies were found on CAT scan. Patient will follow-up with poultry cutter as an outpatient for better control of her asthma symptoms. 2. Sinus tachycardia: EKG obtained revealed P-wave morphology identical to sinus rhythm, in the absence of any identifiable causes of tachycardia. Initially, patient was thought to be fluid depleted and subsequently resuscitated without any improvement in her tachycardia. The tachycardia persisted despite vagal maneuvers, taking into consideration's any simon reentrant tachycardias. Eventually, it was thought that the patient has inappropriate sinus tachycardia/nonparoxysmal sinus tachycardia, which abated on its own on the second day of admission. 3. Headaches: Patient needs to see a neurologist for better evaluation of her headaches/"migraines". She states that her episodes have become as frequent as 1 each month and to limit her level of function. Patient will benefit from outpatient neurology evaluation. 4. History of sleeve gastrectomy: Follow-up with bariatric surgeon upon outpatient, as scheduled or advised. Allergies: Coded Allergies: cat dander (TRIGGERS ASTHMA 01/09/17) Disposition Summary Disposition Principal Diagnosis: Acute hypoxemic respiratory failure secondary to asthma exacerbation Additional Diagnosis: Headaches, secondary to possible migraine Discharge Disposition: home or self care Discharge Instructions General Discharge Information Code Status: Full Code Patient's Diet: Regular Patient's Activity: As tolerated Follow-Up Instructions/Appts: Please follow-up with primary care physician as an outpatient. Please follow-up with poultry cutter as an outpatient. Medications at Discharge Discharge Medications: Stop taking the following medications: Prednisone (Prednisone) 20 MG TABLET ORAL TWICE DAILY Qty = 8 Continue taking these medications: Albuterol Sulfate (Proair Hfa) 8.5 GM HFA.AER.AD 2 Puff Inhale through mouth as needed for ASTHMA Comments: PER PT NOT GIVEN IN HOSPITAL Secukinumab (Cosentyx Pen (2 Pens)) 150 MG/ML PEN.INJCTR 350 Milligram ORAL ONCE A MONTH Days = 90 Comments: PER PT HAS NOT YET STARTED MED NOT GIVEN IN HOSPITAL Benzonatate (Tessalon Perle) 100 MG CAPSULE 1 Capsule ORAL THREE TIMES DAILY as needed for COUGH Qty = 21 Comments: NOT GIVEN IN HOSPITAL Codeine Phosphate/Guaifenesi (Cheratussin AC Syrup) 10 MG-100 MG/5 ML LIQUID 10 Milliliters ORAL THREE TIMES DAILY as needed for COUGH Qty = 100 Comments: NOT GIVEN IN HOSPITAL Albuterol Sulfate (Albuterol Sulfate) 1.25 MG/3 ML VIAL.NEB 1 Vial Inhale Solution EVERY 4-6 HOURS as needed for ASTHMA Qty = 150 Comments: Last Taken: 03/06/17 Time: 8:00 AM Start taking the following new medications: Prednisone (Prednisone) 10 MG TABLET 0 ORAL TAPER Qty = 60 No Refills Instructions: TAKE 6 TABS DAILY FOR 3 DAYS STARTING 03/06/17. THEN TAKE 5 TABS DAILY FOR 3 DAYS. THEN TAKE 4 TABS DAILY FOR 3 DAYS. THEN TAKE 3 TABS DAILY FOR 3 DAYS. THEN TAKE 2 TABS DAILY THEREAFTER (SAME DOSE FOR YOUR PSORIATRIC ARTHRITIS PRESCRIPTION). Comments: Last Taken: 03/06/17 Time: 10:30 AM Pseudoephedrine HCl (Sudogest) 30 MG TABLET 30 Milligram ORAL EVERY SIX HOURS NEEDED as needed for nasal decongestion Days = 5 No Refills Comments: NOT GIVEN IN HOSPITAL Budesonide/Formoterol Fumarate (Symbicort 80-4.5 Mcg Inhaler) 80 MCG-4.5 MCG/ ACTUATION HFA.AER.AD 2 Puff Inhale through mouth TWICE DAILY Days = 30 No Refills Comments: Last Taken: 03/06/17 Time: 10:30 AM Montelukast Sodium (Montelukast Sodium) 10 MG TABLET 10 Milligram ORAL AT BEDTIME Days = 30 No Refills Comments: Last Taken: 03/05/17 Time: 10:00 PM Tiotropium [place] (Spiriva) 18 MCG CAP.W.DEV 1 Puff Inhale through mouth DAILY Days = 30 No Refills Comments: Last Taken: 03/06/17 Time: 10:30 AM Oxycodone HCl/Acetaminophen (Percocet 5-325 MG Tablet) 5 MG-325 MG TABLET 1 Tablet ORAL TWICE DAILY as needed for Migraine Qty = 10 No Refills Comments: NOT GIVEN IN HOSPITAL Copies To: TYRON GLEASON,SENTHIL Tripathi Attending Review Statement Documenting Attending: SOPHIA GLEASON,TIMI
[2017-03-04 16:50] VITALS: BP 128/88
[2017-03-05 00:58] VITALS: BP 96/50
[2017-03-05 01:18] VITALS: BP 118/82
--- NOTE | 2017-03-05 07:23 | PN- Housestaff ---
NATALIEKOMAL 03/05/17 0717: Subjective Follow-up For: Asthma exacerbation Migraine headaches Tele-Events Since Last Visit: Sinus rhythm Subjective: States minimal improvement in breathing symptoms. Improvement in cough, still feels congested. No fevers or chills. Persistent headache, now states that this is dissimilar to her previous "migraine" headches. Today states that she has tried triptans with no effects in the past, while yesterday she mentioned that she has never used Triptans. Review of Systems Constitutional: Reports: see HPI. Objective Last 24 Hrs of Vital Signs/I&O Vital Signs Date Time Temp Pulse Resp B/P B/P Pulse O2 O2 Flow FiO2 Mean Ox Delivery Rate 03/05 0852 89 Nasal 3.5L Cannula 03/05 08 91 Nasal 3.5L Cannula 03/05 08 91 Nasal 3.5L Cannula 03/05 08 97.8 79 20 140/88 91 Nasal 3.0L Cannula 03/05 0400 93 Nasal 3.5L Cannula 03/05 0118 118/82 03/05 0058 99.0 91 20 96/50 94 Nasal Cannula 03/05 0000 93 Nasal 3.5L Cannula 03/05 0000 93 Nasal 3.5L Cannula 03/04 2000 92 Nasal 3.5L Cannula 03/04 1650 98.6 95 20 128/88 95 Nasal 3.5L Cannula 03/04 1600 92 Nasal 3.5L Cannula 03/04 1553 95 Nasal 2.0L Cannula Intake & Output 03/05 1600 03/05 0800 06 0000 Intake Total 240 200 Output Total Balance 240 200 Intake, Oral 240 200 Physical Exam General Appearance: Alert, Oriented X3, Cooperative, Mild Distress Cardiovascular: Regular Rate, Normal S1, Normal S2 Lungs: Improved air entry, diffuse bilateral wheezes, improved. Abdomen: Normal Bowel Sounds, Soft Extremities: No Clubbing, No Cyanosis, Normal Pulses Current Medications: Current Medications Sig/Jeanne Start time Last Medication Dose Route Stop Time Status Admin Acetaminophen 650 MG Q6P PRN 03/03 0145 AC PO Albuterol Sulfate 3 ML EVERY 4 HRS/AWAKE 03/03 1200 AC 03/05 INH 0851 Benzonatate 100 MG TID PRN 03/03 0245 AC PO Budesonide/ 2 PUF BID 03/05 0730 AC Formoterol Fumarate INH Guaifenesin 600 MG Q12 03/04 1000 AC 03/05 PO 0846 Heparin Sodium 5,000 UNIT Q8 03/03 0600 AC 03/05 (Porcine) SC 0608 Ketorolac 30 MG ONCE PRN 03/04 2015 DC Tromethamine IV Methylprednisolone 40 MG Q6 03/03 0600 AC 03/05 IV 0604 Morphine Sulfate 2 MG Q4P PRN 03/05 0800 AC 03/05 IV 0847 Morphine Sulfate 2 MG Q6P PRN 03/04 0745 DC 03/05 IV 0311 Omeprazole 40 MG DAILY AC 03/03 0838 AC 03/05 PO 0604 Tramadol HCl 50 MG Q6 PRN 03/03 0215 AC 03/03 PO 0946 Last 24 Hrs of Lab/Tamir Results Last 24 Hrs of Labs/Mics: Laboratory Tests 03/04/17 1100: Anion Gap 14, Estimated GFR > 60, BUN/Creatinine Ratio 12.9 Assessment/Plan Assessment: 26 year old woman here with sudden onset shortness of breath, recent sleeve gastrectomy, PE ruled out with a CTA , was on telemetry monitoring for asthma exacerbation and inappropriate sinus tachycardia (resolved). 1. Asthma exacerbation: Slight improvement on pulmonary exam, but still requiring high amounts of O2 via nasal cannula. Await sputum for culture. Mucinex ER. TRC neb. Will benefit from pulmonary evaluation, given lack of improvement and to establish care with pulmonary for this intensity of exacerbations. Pulmonary consult. *Role of checking for deficieny of Alpha anti trypsin : Suggestive demographics in this patient being young age and on imaging, a basilar-predominant pattern of atelectasis/conolidation, although there is no evidence of emphysema, no transaminitis. There are fatty liver changes on CT scan. FH significant for emphysema in mother and grandmother, and liver disease in father (occasional drinker). Will need PFTs, ?obstructive pattern and perhaps restrictive as well; OHS. May benefit from inhaled GCs. Trial of Symbicort. ? Role of azithromycin to cover for atypical bronchitis leading to current episode of exacerbation, and also for anti inflammatory effect. Await sputum evaluation. Encourage incentive spirometry, evidence of atelectasis on CT scan. Change IV steroids to 40 mg Q8. OOB to chair. Tranfer to gen med. Pulse ox q6. 2. Headache : Today patient states that she has tried Triptans in past, and doesn't want to try them anymore. Further states current episode is different from her migraine episodes. These statements are contradictory to her statements from yesterday. She additionally mentions that only IV Dialudid works for her and not the PO as it drops her saturations. Neuro evaluation as an outpatient, and perhaps better management of her once a month "migraine episodes". Continue IV Morphine for now. No NSAIDs given recent sleeve gastrectomy. Patients refuses Triptans. Full code DVT proph pharm Regular diet Problem List: 1. Headache Pain Ratin Pain Location: Head Pain Goal: Pain 7 or less Pain Plan: IV morphine Tomorrow's Labs & Rationales: CBC r/o acute infection TIMI CORTES MD 03/05/17 1053: Attending MD Review Statement Attending Statement Attending MD Statement: examined this patient, discuss w/resident/PA/AVIATION ALL SOURCE INTELLIGENCE, agreed w/resident/PA/[employer] INTELL[employer], reviewed EMR data (avail), discussed with nursing, discussed with case mgmt, amended to note Attending Assessment/Plan: Patient seen and examined, not feeling better. Still feeling short of breath and wheezy. Still c/o headache and says that IV morphine helps. Vital Signs Date Time Temp Pulse Resp B/P B/P Pulse O2 O2 Flow FiO2 Mean Ox Delivery Rate 03/05 0852 89 Nasal 3.5L Cannula 03/05 0800 91 Nasal 3.5L Cannula 03/05 0800 91 Nasal 3.5L Cannula 03/05 0800 97.8 79 20 140/88 91 Nasal 3.0L Cannula 03/05 0400 93 Nasal 3.5L Cannula 03/05 0118 118/82 03/05 0058 99.0 91 20 96/50 94 Nasal Cannula 03/05 0000 93 Nasal 3.5L Cannula 03/05 0000 93 Nasal 3.5L Cannula 03/04 2000 92 Nasal 3.5L Cannula 03/04 1650 98.6 95 20 128/88 95 Nasal 3.5L Cannula 03/04 1600 92 Nasal 3.5L Cannula 03/04 1553 95 Nasal 2.0L Cannula on exam; aox3, nad. cv; s1,s2, rrr resp; + exp wheeze b/l abd; soft, nt, bs+ ext; no edema. Laboratory Tests 03/04 1100 Chemistry Sodium (137 - 145 mmol/L) 142 Potassium (3.5 - 5.1 mmol/L) 3.8 Chloride (98 - 107 mmol/L) 105 Carbon Dioxide (22 - 30 mmol/L) 23 Anion Gap (5 - 16) 14 BUN (7 - 17 mg/dL) 9 Creatinine (0.5 - 1.0 mg/dL) 0.7 Estimated GFR (>60 ml/min) > 60 BUN/Creatinine Ratio (7 - 25 %) 12.9 A/P; 26 y/o F with pmh sig for asthma with the previous serious exacerbation 5 years ago that required intubation but afterwards there was not such a bad exacerbation, psoriasis, psoriatic arhtirits, recent gastric sleeve surgery about 8 weeks ago, cholecystectomy, who is admitted with acute respiratory failure likely secondary to asthma exacerbation. Pulmonary embolism was ruled out. At this point her steroids will be dosed at every 8 hours. Would recommend getting pulmonology consult as patient is still very wheezy. Patient is already on Symbicort and TRC Nebs. Continue Morphine, will likely switch to oral agent in am. Please check [facility] [employer] website to see her narcotic hx. DVT Px; Hep sq.
[2017-03-05 08:00] VITALS: BP 140/88
--- NOTE | 2017-03-05 12:22 | Cons- Pulmonary ---
General Information and HPI Consulting Request Date of Consult: 03/05/17 Requested By: Dr. Harrington Reason for Consult: Hypoxemia Source of Information: patient, old records Exam Limitations: no limitations History of Present Illness: The patient is a 26-year-old female with a past medical history significant for asthma (managed by per PCP), last exacerbation was 5 years ago. She has been intubated in the past. She has no history of sleep disordered breathing. She also has a history of psoriasis, psoriatic arthritis, cholecystectomy and gastric sleeve surgery with 70 pound weight loss. The patient was admitted on 03/03/2017 with complaints of increased cough and wheezing. The patient also complained of increased shortness of breath. The patient was using her nebulizer and inhaler every 2 hours without significant relief. In the emergency department the patient was given a nebulizer treatment and Solu-Medrol , noting she felt improved. She was discharged at that point. 45 minutes after getting home the patient started feeling more short of breath with increased wheezing, when she returned to the emergency department. She is been undergoing treatment for bronchospasm since admission. The patient's oxygen saturation was initially found to be 90% on room air, however the patient has been on 3 - 3.5 liters nasal cannula of supplemental oxygen since admission with the exception of one reading. Her saturations have remained in the low 90s for the most part. Despite receiving Solu-Medrol 40 mg IV every 8 hours, the patient continues to have an oxygen requirement, increased wheezing, and shortness of breath. She has ongoing nasal congestion. She has a cough but this is not significantly productive. She has no fever or chills on steroids. Initial chest x-ray showed bronchial wall thickening with small airways disease. A CT angiogram was done due to persistent hypoxia, noting there is no evidence of pulmonary embolism. There was bibasilar atelectasis versus consolidation. The patient has remained on DVT prophylaxis. An ABG was done on 03/03/2017 that showed a pH of 7.45, PCO2 28, PO2 81, bicarbonate of 19, and an oxygen saturation of 95%. Allergies/Medications Allergies: Coded Allergies: cat dander (TRIGGERS ASTHMA 01/09/17) Home Med List: Albuterol Sulfate (Proair Hfa) 8.5 GM HFA.AER.AD 2 PUF INH PRN ASTHMA ( Reported) Albuterol Sulfate 1.25 MG/3 ML VIAL.NEB 1 Vial INH/PATTI Q4-6 PRN ASTHMA Benzonatate (Tessalon Perle) 100 MG CAPSULE 1 CAP PO TID PRN COUGH Codeine Phosphate/Guaifenesi (Cheratussin AC Syrup) 10 MG-100 MG/5 ML LIQUID 10 ML PO TID PRN COUGH Prednisone 20 MG TABLET 1 TAB PO BID psoriac arthritis Secukinumab (Cosentyx Pen (2 Pens)) 150 MG/ML PEN.INJCTR 350 MG PO Q30D PSORIATIC ARTHRITIS (Reported) Review of Systems Review of Systems Constitutional: Denies: chills, diaphoresis, fever, malaise, weakness, unexplained weight loss. EENTM: Denies: no symptoms. Cardiovascular: Reports: orthopena. Denies: chest pain, edema, palpitations, peripheral edema, syncope. Respiratory: Reports: cough, orthopnea, short of breath, sputum production, wheezing. Denies : hemoptysis, stridor. GI: Denies: no symptoms. Genitourinary: Denies: no symptoms. Musculoskeletal: Denies: no symptoms. 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 Home Who Do You Live With? spouse, child Services at Home: None Primary Language: Kenyan Smoking Status: Never Smoked ETOH Use: denies use Illicit Drug Use: denies illicit drug use Functional Ability ADLs Independent: dressing, eating, toileting, bathing. Ambulation: independent IADLs Independent: shopping, housework, finances, food prep, telephone, transportation , medication admin. Exam & Diagnostic Data Last 24 Hrs of Vital Signs/I&O Vital Signs Date Time Temp Pulse Resp B/P B/P Pulse O2 O2 Flow FiO2 Mean Ox Delivery Rate 06/01 0852 89 Nasal 3.5L Cannula 03/05 08 91 Nasal 3.5L Cannula 03/05 08 91 Nasal 3.5L Cannula 03/05 08 97.8 79 20 140/88 91 Nasal 3.0L Cannula 03/05 0400 93 Nasal 3.5L Cannula 03/05 0118 118/82 03/05 0058 99.0 91 20 96/50 94 Nasal Cannula 03/05 0000 93 Nasal 3.5L Cannula 03/05 0000 93 Nasal 3.5L Cannula 03/04 2000 92 Nasal 3.5L Cannula 03/04 1650 98.6 95 20 128/88 95 Nasal 3.5L Cannula 03/04 1600 92 Nasal 3.5L Cannula 03/04 1553 95 Nasal 2.0L Cannula Intake & Output 03/05 1600 03/05 0800 03/05 0000 Intake Total 240 200 Output Total Balance 240 200 Intake, Oral 240 200 Physical Exam General Appearance: no apparent distress, alert, awake, comfortable, obese Head: atraumatic, normal appearance Neck: supple Respiratory: bilateral diffuse expiratory wheezes with decreased air entry Cardiovascular: regular rate/rhythm, S1 and S2 heard Gastrointestinal: normal bowel sounds, soft, non-tender Extremities: no edema Skin: intact, normal color, warm/dry Last 48 Hrs of Labs/Tamir: Laboratory Tests 03/04/17 1100: Anion Gap 14, Estimated GFR > 60, BUN/Creatinine Ratio 12.9 03/04/17 0600: CBC w Diff NO MAN DIFF REQ, RBC 4.49, MCV 82.9, MCH 27.4, RDW 16.0 H, MPV 9.1, Gran % 93.4 H, Lymphocytes % 4.9 L, Monocytes % 1.6 L, Eosinophils % 0, Basophils % 0.1, Absolute Granulocytes 14.2 H, Absolute Lymphocytes 0.7 L, Absolute Monocytes 0.2, Absolute Eosinophils 0, Absolute Basophils 0, PUBS MCHC 33.0 Diagnostic Data CXR Results No consolidation. Bronchial wall thickening can be seen with a small airways process such as asthma or atypical/viral infection. Other Results 1. No evidence of pulmonary embolism. 2. Mild bibasilar atelectasis versus consolidation. 3. Diffuse fatty infiltration of the liver. Assessment/Plan Impression/Plan: 1. Ongoing hypoxemic respiratory failure secondary to ongoing bronchospasm, associated with atelectasis. 2. Severe nasal congestion which could be contributing to ongoing hypoxia. 3. Morbid obesity without history of sleep disordered breathing. 4. Leukocytosis likely steroid induced. 5. History of psoriasis and psoriatic arthritis. Recommendations: * Remove nail irish on at least 2 fingers to compare saturations. Nail irish obscures pulse oximetry readings. * Increase Solu-Medrol to 40 mg every 6 hours. * Begin systemic decongestants such as Sudafed for nasal decongestion. * Add Singulair 10 mg daily. * Add Spiriva 1 inhalation daily. * Continue Symbicort. * Continue nebs/TRC q 4 hours around the clock. * Monitor blood sugars while on high-dose steroid therapy. * Check a quick flu. * Check urine for strep pneumo and Legionella. * DVT prophylaxis at all times. * Thank you for the consult, I will follow the patient along with you might further recommendations as necessary. Consult Acknowledgment - Thank you for your consult request.
[2017-03-05 15:30] VITALS: BP 112/62
[2017-03-05 21:55] VITALS: BP 120/50
[2017-03-06 07:57] LABS: ABSOLUTE BASOPHIL COUNT 0 /CUMM (0.0-0.2); ABSOLUTE EOSINOPHIL COUNT 0 /CUMM (0.0-0.7); ABSOLUTE GRANULOCYTE CT 8.5 /CUMM (1.4-6.5); ABSOLUTE MONOCYTE COUNT 0.4 /CUMM (0.10-0.60); BASOPHIL % 0.1 % (0.0-2.0); EOSINOPHIL % 0 % (0-5); HEMATOCRIT 39.2 % (37-47); MEAN CORPUSCULAR HGB 27.6 PG (27.0-31.0); MEAN CORPUSCULAR HGB CONC 33.4 G/DL (33.0-37.0); MEAN CORPUSCULAR VOLUME 82.7 FL (81.0-99.0); MEAN PLATELET VOLUME 8.8 FL (7.4-10.4); RBC DISTRIBUTION WIDTH 16.5 % (11.5-14.5); RED BLOOD CELL CT 4.74 /CUMM (4.20-5.40); WHITE BLOOD CELL COUNT 9.9 /CUMM (4.8-10.8)
[2017-03-06 08:00] VITALS: BP 120/80
[2017-03-06 09:01] LABS: GRANULOCYTE % 86.4 % (42.2-75.2); PLATELET COUNT 220 /CUMM (130-400)
[2017-03-06] MEDS ORDERED: MONTELUKAST SOD10 M1 PO (09:28)
[2017-03-06] MEDS ORDERED: SPIRIVA18 MCG INH ×2 (09:28→10:57)
[2017-03-06] MEDS ORDERED: SYMBICORT 80-10.2 GM INH (09:28)
[2017-03-06] MEDS ORDERED: PREDNISONE10 M2 PO ×3 (09:28→10:04)
[2017-03-06] MEDS ORDERED: SUDOGEST30 MG PO (09:28)
--- NOTE | 2017-03-06 09:30 | Patient Discharge Instructions ---
Discharge Instructions General Discharge Information You were seen/treated for: Very low oxygen levels due to severe asthma exacerbation. Watch for these problems: Worsening breathing symptoms. Low oxygen saturations. Fevers/chill. Special Instructions: Follow up with PCP in 1-2 weeks. Follow up with lung doctor in 1-2 weeks. Follow up with Neurologist for migraines in 1-2 weeks. Diet Continue normal diet: Yes Activity Full Activity/No Limits: Yes Acute Coronary Syndrome Inclusion Criteria At DC or during hospital stay patient has or had the following: ACS DIAGNOSIS No Discharge Core Measures Meds if any: Prescribed or Continued at Discharge Meds if any: NOT Prescribed or Continued at Discharge Congestive Heart Failure Inclusion Criteria At DC or during hospital stay patient has or had the following: CHF DIAGNOSIS No Discharge Core Measures Meds if any: Prescribed or Continued at Discharge Meds if any: NOT Prescribed or Continued at Discharge Cerebrovascular accident Inclusion Criteria At DC or during hospital stay patient has or had the following: CVA/TIA Diagnosis No Discharge Core Measures Meds if any: Prescribed or Continued at Discharge Meds if any: NOT Prescribed or Continued at Discharge Venous thromboembolism Inclusion Criteria VTE Diagnosis No VTE Type NONE VTE Confirmed by (Test) NONE Discharge Core Measures - Per Current guidelines, there needs to be overlap - treatment for the first 5 days of Warfarin therapy. - If discharged on Warfarin prior to 5 days of - overlap therapy, the patient will need to be - assessed for post discharge needs including - *Post discharge parental anticoagulation - *Warfarin and/or parental anticoagulation education - *Follow up date to check INR post discharge At least 5 days overlap therapy as Inpatient No Meds if any: Prescribed or Continued at Discharge Note: Overlap Therapy is Warfarin and Anticoagulant Meds if any: NOT Prescribed or Continued at Discharge
[2017-03-06] MEDS ORDERED: PERCOCET 5-3251 EACH PO (09:31)
--- NOTE | 2017-03-06 10:14 | PN- Housestaff ---
KOMAL ESTRADA 03/06/17 0957: Subjective Follow-up For: Acute hypoxemia secondary to asthma exacerbation Subjective: Feels well this morning. Reports much improved breathing. Reports improved headaches. Review of Systems Constitutional: Reports: see HPI. Objective Last 24 Hrs of Vital Signs/I&O Vital Signs Date Time Temp Pulse Resp B/P B/P Pulse O2 O2 Flow FiO2 Mean Ox Delivery Rate 03/06 08 98.1 74 20 120/80 90 Nasal 3.5L Cannula 03/06 0400 91 Nasal 3.5L Cannula 03/06 0000 91 Nasal 3.5L Cannula 03/06 0000 92 Nasal 3.5L Cannula 03/05 2155 98.0 88 20 120/50 91 Nasal 3.5L Cannula 03/05 2000 92 Nasal 3.5L Cannula 03/05 1735 91 Nasal 3.0L Cannula 03/05 1600 Nasal 3.5L Cannula 03/05 1600 92 Nasal 3.5L Cannula 03/05 1530 98.1 74 16 112/62 92 Nasal Cannula 03/05 1200 91 Nasal 3.5L Cannula Intake & Output 03/06 1600 03/06 0800 03/06 0000 Intake Total 285 740 Output Total 400 Balance -115 740 Intake, IV 25 20 Intake, Oral 260 720 Output, Urine 400 Physical Exam General Appearance: Alert, Oriented X3, Cooperative, No Acute Distress Cardiovascular: Regular Rate, Normal S1, Normal S2 Lungs: Clear to Auscultation, Normal Air Movement Abdomen: Normal Bowel Sounds, Soft, No Tenderness Extremities: No Clubbing, No Cyanosis, No Edema Current Medications: Current Medications Sig/Jeanne Start time Last Medication Dose Route Stop Time Status Admin Acetaminophen 650 MG Q6P PRN 03/03 0145 AC PO Albuterol Sulfate 3 ML EVERY 4 HRS/AWAKE 03/03 1200 AC 03/06 INH 0759 Benzonatate 100 MG TID PRN 03/03 0245 AC PO Budesonide/ 2 PUF BID 03/05 0730 AC 03/05 Formoterol Fumarate INH 2148 Guaifenesin 600 MG Q12 03/04 1000 AC 03/05 PO 2148 Heparin Sodium 5,000 UNIT Q8 03/03 0600 AC 03/06 (Porcine) SC 0554 Methylprednisolone 40 MG Q8 03/05 1400 DC IV Methylprednisolone 40 MG Q6 03/05 1330 DC 03/06 IV 0555 Montelukast Sodium 10 MG AT BEDTIME 03/05 2200 AC 03/05 PO 2148 Morphine Sulfate 2 MG Q4P PRN 03/05 0800 AC 03/06 IV 0555 Omeprazole 40 MG DAILY AC 03/03 0838 AC 03/06 PO 0554 Prednisone 50 MG DAILY 03/06 1000 AC PO 03/07 1001 Pseudoephedrine HCl 30 MG Q6P PRN 03/05 1330 AC 03/05 PO 1634 Tiotropium Cornucopia 1 PUF DAILY 03/05 1332 AC 03/05 INH 1635 Tramadol HCl 50 MG Q6 PRN 03/03 0215 AC 03/03 PO 0946 Last 24 Hrs of Lab/Tamir Results Last 24 Hrs of Labs/Mics: Laboratory Tests 03/06/17 0600: Anion Gap 11, Estimated GFR > 60, BUN/Creatinine Ratio 23.8, CBC w Diff NO MAN DIFF REQ, RBC 4.74, MCV 82.7, MCH 27.6, RDW 16.5 H, MPV 8.8, Gran % 86.4 H, Lymphocytes % 9.9 L, Monocytes % 3.6, Eosinophils % 0, Basophils % 0.1, Absolute Granulocytes 8.5 H, Absolute Lymphocytes 1.0 L, Absolute Monocytes 0.4, Absolute Eosinophils 0, Absolute Basophils 0, PUBS MCHC 33.4 Microbiology 03/05 1333 NASOPHARYN: Influenza Virus A & B Rapid Smear - COLB Assessment/Plan Assessment: 26 year old woman here with sudden onset shortness of breath, recent sleeve gastrectomy, PE ruled out with a CTA , was on telemetry monitoring for asthma exacerbation and inappropriate sinus tachycardia (resolved). 1. Asthma exacerbation: Much improved today. Stable for discharge. Close follow-up with primary doctor as an outpatient. Prednisone taper. Symbicort and singular. 2. Headache : Follow-up with neurologist as an outpatient for further evaluation. Full code DVT proph pharm Regular diet Problem List: 1. Asthma Pain Ratin Pain Location: Head Pain Goal: Remain pain free Pain Plan: Percocet Tomorrow's Labs & Rationales: Not needed. SOPHIA GLEASON,TIMI 03/06/17 1057: Attending Review Statement Attending Statement Attending Statement: examined this patient, discuss w/resident/PA/HEALTH PLAN SPECIALIST, agreed w/resident/PA/HEALTH PLAN SPECIALIST, reviewed EMR data (avail), discussed with nursing, discussed with case mgmt, amended to note Attending Assessment/Plan: Patient seen and examined, overall feeling better. Still requiring oxygen and still has some wheezing. Patient wants to go home today. Ideally speaking she should be staying at least 1 more day because she still requiring oxygen at a significant level. Seen by pulmonology Dr. France. We'll start the prednisone taper as recommended by Dr. France. Will continue Singulair as well as Spiriva and Symbicort. Patient was told that ideally speaking she is not medically stable for discharge today and should wait another day but she has a home situation where she cannot find a technical sales director for her children and needs to be home later today. She understands the risks of leaving and understands that if her respiratory status gets worse then she needs to come back to the hospital. She is also requesting a few pills of Percocet to go home. We will give her a few Percocet by of Percocet. The rest of the prescriptions will be given. Patient to follow-up with her primary care doctor as well as Dr. France as an outpatient.
--- NOTE | 2017-03-06 10:42 | PN- Pulmonary ---
Subjective HPI/Critical Care Issues: The patient is awake and alert. She reports feeling significantly improved over the past 24 hours. She feels less short of breath with exertion. She feels she is wheezing less as well. She has a cough but this is productive of clear sputum. She is afebrile on steroids. Overall she feels her asthma exacerbation is trending in the correct direction. The patient is visibly upset during the interview today noting she has childcare issues at home and needs to leave AGAINST MEDICAL ADVICE. Objective Current Medications: Current Medications Sig/Jeanne Start time Last Medication Dose Route Stop Time Status Admin Acetaminophen 650 MG Q6P PRN 03/03 0145 AC PO Albuterol Sulfate 3 ML EVERY 4 HRS/AWAKE 03/03 1200 AC 03/06 INH 0759 Benzonatate 100 MG TID PRN 03/03 0245 AC PO Budesonide/ 2 PUF BID 03/05 0730 AC 03/06 Formoterol Fumarate INH 1031 Guaifenesin 600 MG Q12 03/04 1000 AC 03/06 PO 1030 Heparin Sodium 5,000 UNIT Q8 03/03 0600 AC 03/06 (Porcine) SC 0554 Methylprednisolone 40 MG Q8 03/05 1400 DC IV Methylprednisolone 40 MG Q6 03/05 1330 DC 03/06 IV 0555 Montelukast Sodium 10 MG AT BEDTIME 03/05 2200 AC 03/05 PO 2148 Morphine Sulfate 2 MG Q4P PRN 03/05 0800 AC 03/06 IV 0555 Omeprazole 40 MG DAILY AC 03/03 0838 AC 03/06 PO 0554 Prednisone 50 MG DAILY 03/06 1000 AC 03/06 PO 03 1001 1031 Pseudoephedrine HCl 30 MG Q6P PRN 03/05 1330 AC 03/05 PO 1634 Tiotropium [place] 1 PUF DAILY 03/05 1332 AC 03/06 INH 1030 Tramadol HCl 50 MG Q6 PRN 03/03 0215 AC 03/03 PO 0946 Vital Signs & I&O Last 24 Hrs of Vitals and I&O: Vital Signs Date Time Temp Pulse Resp B/P B/P Pulse O2 O2 Flow FiO2 Mean Ox Delivery Rate 03/06 08 98.1 74 20 120/80 90 Nasal 3.5L Cannula 03/06 0400 91 Nasal 3.5L Cannula 03/06 0000 91 Nasal 3.5L Cannula 03/06 0000 92 Nasal 3.5L Cannula 03/05 2155 98.0 88 20 120/50 91 Nasal 3.5L Cannula 03/05 Nasal 3.5L Cannula 03/05 1735 91 Nasal 3.0L Cannula 03/05 1600 Nasal 3.5L Cannula 03/05 1600 92 Nasal 3.5L Cannula 03/05 1530 98.1 74 16 112/62 92 Nasal Cannula 03/05 1200 91 Nasal 3.5L Cannula Intake & Output 03/06 1600 03/06 0800 03/06 0000 Intake Total 285 740 Output Total 400 Balance -115 740 Intake, IV 25 20 Intake, Oral 260 720 Output, Urine 400 Physical Exam General Appearance: no apparent distress, alert, awake, comfortable, obese Head: atraumatic, normal appearance Neck: supple Respiratory: bilateral diffuse expiratory wheezes with decreased air entry, but somewhat improved compared to yesterday Cardiovascular: regular rate/rhythm, S1 and S2 heard Gastrointestinal: normal bowel sounds, soft, non-tender Extremities: no edema Skin: intact, normal color, warm/dry Results Last 24 Hrs of Lab Results: Laboratory Tests 03/06/17 0600: Anion Gap 11, Estimated GFR > 60, BUN/Creatinine Ratio 23.8, CBC w Diff NO MAN DIFF REQ, RBC 4.74, MCV 82.7, MCH 27.6, RDW 16.5 H, MPV 8.8, Gran % 86.4 H, Lymphocytes % 9.9 L, Monocytes % 3.6, Eosinophils % 0, Basophils % 0.1, Absolute Granulocytes 8.5 H, Absolute Lymphocytes 1.0 L, Absolute Monocytes 0.4, Absolute Eosinophils 0, Absolute Basophils 0, PUBS MCHC 33.4 Impression/Plan Impression/Plan Impression/Plan: 1. Ongoing hypoxemic respiratory failure secondary to ongoing bronchospasm, associated with atelectasis. The patient feels she is doing better overall. 2. Severe nasal congestion which could be contributing to ongoing hypoxia. 3. Morbid obesity without history of sleep disordered breathing. 4. Leukocytosis likely steroid induced. 5. History of psoriasis and psoriatic arthritis. Recommendations: * Change to prednisone 60 mg for 3 days, 50 mg for 3 days, 40 mg for 3 days, 30 mg for 3 days, 20 mg for 3 days, 10 mg for 3 days, 5 mg for 3 days then off. * The patient will require temporary home oxygen. This should be titrated down to off at home by visiting nurses. * Recommend continuation of Sudafed until the nasal decongestion improves. * Continue montelukast 10 mg daily. * Spiriva 1 inhalation daily - just finish current in hospital course, patient to take inhaler home. * Continue Symbicort 160/4.5, 1 inhalation every 12 hours. Patient will need a script. * Continue nebs/TRC q 4 hours around the clock. * I discussed the issue of ongoing bronchospasm with the patient at length. She states because she has no childcare she needs to leave AGAINST MEDICAL ADVICE. She is aware that her respiratory status could rapidly decline, resulting in hospital readmission, intubation, or even respiratory arrest. Regardless, she reports that she feels she is recovering as she had done so in the past with her previous asthma exacerbations and because of her childcare issues she needs to leave later today. She agrees to return to the hospital if her respiratory status decompensates.
--- NOTE | 2017-03-06 10:48 | NUR ---
PT'S O2 SAT ON 3.5LNC AT REST WAS 92%, AT REST ON RA WAS 86%. AMBULATORY O2 SAT ON 3.5LNC WAS 87-91%, AFTER AMBULATION ON RA WAS 88%.
== END 2017-03-06 12:00 | DRG 141 ==
LOC: ERH 00:04 → ERHI 01:21 → 1NO 01:21 → ENRESERV 02:17 → 1NO 02:47 → ENTRNSPT 16:50 → CMPTRNSPT 17:14 → 1NO 03-05 07:06 → ENPENDDIS 03-06 09:58 → 1NO 03-06 12:00
PROVIDERS: Internal Medicine; Internal Medicine Hematology & Oncology; Internal Medicine Infectious Disease; Physician Assistant; ADMIT Internal Medicine
DX: J45.901 Unspecified asthma with (acute) exacerbation (principal); J96.01 Acute respiratory failure with hypoxia; E87.2 Acidosis; L40.50 Arthropathic psoriasis, unspecified; E66.01 Morbid (severe) obesity due to excess calories; E87.6 Hypokalemia; Z68.39 Body mass index [BMI] 39.0-39.9, adult; G43.909 Migraine, unspecified, not intractable, without status migrainosus; R00.0 Tachycardia, unspecified; Z98.84 Bariatric surgery status
CPT/HCPCS: 1NP; 36415; 80307; 82436; 87040; 87070; 87071; 87449; 87450; 87804; 87804-59; 93005; 93010; 94644; 94799; 96365; 96374; 99291; G0480; J1644; J1885; J2270; J2920; J2930; J3490

== ENCOUNTER 2017-11-01 10:56 | Emergency (ER) | payer OTHER ==
[~2017-11-01] VITALS: Ht 180.3 cm; Wt 97.5 kg
[~2017-11-01 10:56] MED LIST changes: +MONTELUKAST SOD10 M1 PO; +SPIRIVA18 MCG INH; +SUDOGEST30 MG PO; +SYMBICORT 80-10.2 GM INH; +XANAX0.5 M1 PO; +ZOFRAN ODT4 M1 SL
[2017-11-01 11:38] LABS: ABSOLUTE BASOPHIL COUNT 0 /CUMM (0.0-0.2); ABSOLUTE EOSINOPHIL COUNT 0.2 /CUMM (0.0-0.7); ABSOLUTE GRANULOCYTE CT 5.1 /CUMM (1.4-6.5); ABSOLUTE LYMPH COUNT 1.5 /CUMM (1.2-3.4); ABSOLUTE MONOCYTE COUNT 0.3 /CUMM (0.10-0.60); BASOPHIL % 0.4 % (0.0-2.0); EOSINOPHIL % 2.6 % (0-5); GRANULOCYTE % 71.7 % (42.2-75.2); HEMATOCRIT 42.2 % (37-47); MEAN CORPUSCULAR HGB 31.7 PG (27.0-31.0); MEAN CORPUSCULAR HGB CONC 33.4 G/DL (33.0-37.0); MEAN CORPUSCULAR VOLUME 94.8 FL (81.0-99.0); MEAN PLATELET VOLUME 7.2 FL (7.4-10.4); PLATELET COUNT 268 /CUMM (130-400); RBC DISTRIBUTION WIDTH 14.7 % (11.5-14.5); RED BLOOD CELL CT 4.45 /CUMM (4.20-5.40); WHITE BLOOD CELL COUNT 7.1 /CUMM (4.8-10.8)
--- NOTE | 2017-11-01 11:41 | ED GI/GU/ABDOMINAL COMPLAINT ---
History of Present Illness General Chief Complaint: Low Back Pain/Injury Stated Complaint: BAD LOWERN BACK PAIN RADIATING TO R L ABD Source: patient, old records Exam Limitations: no limitations Vital Signs & Intake/Output Vital Signs & Intake/Output Vital Signs Date Time Temp Pulse Resp B/P B/P Pulse O2 O2 Flow FiO2 Mean Ox Delivery Rate 11/01 1611 97.8 92 17 110/64 100 Room Air 11/01 1434 98.5 95 18 117/63 99 Room Air ED Intake and Output 11/02 0000 11/01 1200 Intake Total 100 Output Total Balance 100 Intake, IV 100 Patient 97.522 kg Weight Weight Reported by Patient Measurement Method Allergies Coded Allergies: cat dander (TRIGGERS ASTHMA 11/01/17) Reconcile Medications Albuterol Sulfate (Proair Hfa) 8.5 GM HFA.AER.AD 2 PUF INH PRN ASTHMA ( Reported) Albuterol Sulfate 1.25 MG/3 ML VIAL.NEB 1 Vial INH/PATTI Q4-6 PRN ASTHMA Alprazolam (Xanax) 0.5 MG TABLET 1 TAB PO BIDP PRN anxiety Oxycodone HCl/Acetaminophen (Oxycodone-Acetaminophen 5-325) 5 MG-325 MG TABLET 1 TAB PO TIDPRN NEPHROLITHIASIS Secukinumab (Cosentyx Pen (2 Pens)) 150 MG/ML PEN.INJCTR 350 MG PO Q30D PSORIATIC ARTHRITIS (Reported) Triage Note: PT TO ED FOR C/C OF R FLANK PAIN THAT STARTED 3 DAYS AGO WITH NAUSEA AND VOMITING X 3 TIMES TODAY. RECENT DIAGNOSIS OF KIDNEY STONE TO RIGHT SIDE A FEW WEEKS AGO AND FEELS THE SAME. PT TACHYCARDIC IN TRIAGE. Triage Nurses Notes Reviewed? yes ? N Is pt currently ? No HPI: 27F PMH recurrent nephrolithiasis most recent 2 months ago requiring lithotrypsy presenting with acute onset 10/10 right flank pain with painful urination, non- radiating, no trauma. Denies fever, chills, hematuria, diarrhea, constipation. Nauseous and unable to eat. Past History Travel History Traveled to [place] past 21 day No Medical History Any Pertinent Medical History? 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 No Review of Systems Review of Systems Constitutional: Reports: no symptoms. EENTM: Reports: no symptoms. Respiratory: Reports: no symptoms. Cardiovascular: Reports: no symptoms. GI: Reports: no symptoms. Genitourinary: Reports: see HPI. Musculoskeletal: Reports: no symptoms. Skin: Reports: no symptoms. Neurological/Psychological: Reports: no symptoms. Hematologic/Endocrine: Reports: no symptoms. Immunologic/Allergic: Reports: no symptoms. All Other Systems: Reviewed and Negative Physical Exam Physical Exam General Appearance: well developed/nourished, moderate distress Head: atraumatic, normal appearance Eyes: Bilateral: normal appearance, normal inspection. Ears, Nose, Throat, Mouth: hearing grossly normal, moist mucous membrane Neck: normal inspection, supple Respiratory: normal breath sounds, no respiratory distress Cardiovascular: regular rate/rhythm Gastrointestinal: right flank tenderness Back: normal inspection, normal range of motion Extremities: normal range of motion Neurologic/Psych: awake, alert, oriented x 3, normal mood/affect Core Measures ACS in differential dx? No Sepsis Present: No Sepsis Focused Exam Completed? No Progress Differential Diagnosis: AAA, AMI, appendicitis, biliary colic, bowel obstruction , colon cancer, cholecystitis, diverticulitis, ectopic , endometritis, esophageal varices, gastritis, hepatitis, hernia, hemorrhoids, ischemic bowel, inflamm bowel dis, intrauterine , kidney stone, Zora-Tricia tear, ovarian cyst, ovarian torsion, pancreatitis, PID/cervicitis, peptic ulcer, PUD/ GERD, perforated viscous, SBO, threatened AB, UTI/pyelo Plan of Care: Orders Procedure Date/time Status URINE 11/01 1111 Complete URINALYSIS 11/01 1111 Complete COMPREHENSIVE METABOLIC PANEL 11/01 1111 Complete CBC WITHOUT DIFFERENTIAL 11/01 1111 Complete EKG 11/01 1111 Active Laboratory Tests 11/01/17 1134: Urinalysis LIGHT H, Urine Color RILEY, Urine Clarity HAZY H, Urine pH 6.0, Ur Specific [place] >= 1.030, Urine Protein 30 H, Urine Ketones NEG, Urine Nitrite NEG, Urine Bilirubin NEG@ICTO, Urine Urobilinogen 1.0, Ur Leukocyte Esterase NEG , Ur Microscopic SEDIMENT EXAMINED, Urine RBC PACKD H, Urine WBC RARE, Ur Epithelial Cells FEW, Urine Bacteria FEW H, Urine Mucus MANY H, Urine Hemoglobin LARGE H, Urine Glucose NEG, Urine Test NEGATIVE 11/01/17 1128: Anion Gap 15, Estimated GFR > 60, BUN/Creatinine Ratio 16.7, Glucose 95, Calcium 9.3, Total Bilirubin 1.8 H, AST 18, ALT 23, Alkaline Phosphatase 69, Total Protein 7.5, Albumin 4.2, Globulin 3.3, Albumin/Globulin Ratio 1.3, CBC w Diff NO MAN DIFF REQ, RBC 4.45, MCV 94.8, MCH 31.7 H, MCHC 33.4, RDW 14.7 H, MPV 7.2 L, Gran % 71.7, Lymphocytes % 20.8, Monocytes % 4.5, Eosinophils % 2.6, Basophils % 0.4, Absolute Granulocytes 5.1, Absolute Lymphocytes 1.5, Absolute Monocytes 0.3, Absolute Eosinophils 0.2, Absolute Basophils 0 Diagnostic Imaging: Viewed by Me: Ultrasound. Discussed w/RAD: Ultrasound. Radiology Impression: PATIENT: BILLIE BURLESON PRESENT AGE: 27 PATIENT ACCOUNT NO: [id number] : 88 LOCATION: [facility] ORDERING PHYSICIAN: Sudhakar Guaman MD SERVICE DATE: 11/01/179669 EXAM TYPE : US - US-RENAL/KIDNEY EXAMINATION: US RETROPERITONEAL COMPLETE (RENAL) CLINICAL INFORMATION: 27-year-old woman with right flank pain. COMPARISON: None TECHNIQUE : Real-time imaging of the kidneys and bladder. FINDINGS: RIGHT KIDNEY: 11.7 x 6.4 x 5.2 cm (SAG x AP x TRV). The kidney is normal in size, contour, and echogenicity. Renal cortical thickness is normal. No calculi or focal parenchymal lesions. No hydronephrosis. LEFT KIDNEY: 11.6 x 6.1 x 5.8 cm (SAG x AP x TRV). The kidney is normal in size, contour, and echogenicity. Renal cortical thickness is normal. No calculi or focal parenchymal lesions. No hydronephrosis. BLADDER: Well-distended and normal. A ureteral jet is seen only on the left side. Prevoid bladder volume is 32 mL. Postvoid bladder volume is 0 mL. IMPRESSION: Normal sonographic appearance of the kidneys and bladder. DICTATED BY: Janine Tena MD DATE/TIME DICTATED:11/01/171342 OYSTER PLANTER: WALDO DATE/TIME TRANSCRIBED:11/01/171342 Initial ED EKG: none Departure Departure Disposition: HOME OR SELF CARE Condition: Stable Clinical Impression Primary Impression: Nephrolithiasis Referrals: Josh Lentz MD (PCP/Family) Additional Instructions: Stay well hydrated. Follow up with your scheduled urology appointment this week. Return to emergency room if you experience fever, chills, confusion, bloody urine, painful or foul smelling urination, worsening pain, or any other new or worsening symptoms. Departure Forms: Customer Survey General Discharge Information Prescriptions: Current Visit Scripts Oxycodone HCl/Acetaminophen (Oxycodone-Acetaminophen 5-325) 1 TAB PO TIDPRN #30 TAB
--- NOTE | 2017-11-01 13:47 | ULTRASOUND REPORT ---
EXAMINATION: US RETROPERITONEAL COMPLETE (RENAL) CLINICAL INFORMATION: 27-year-old woman with right flank pain. COMPARISON: None TECHNIQUE: Real-time imaging of the kidneys and bladder. FINDINGS: RIGHT KIDNEY: 11.7 x 6.4 x 5.2 cm (SAG x AP x TRV). The kidney is normal in size, contour, and echogenicity. Renal cortical thickness is normal. No calculi or focal parenchymal lesions. No hydronephrosis. LEFT KIDNEY: 11.6 x 6.1 x 5.8 cm (SAG x AP x TRV). The kidney is normal in size, contour, and echogenicity. Renal cortical thickness is normal. No calculi or focal parenchymal lesions. No hydronephrosis. BLADDER: Well-distended and normal. A ureteral jet is seen only on the left side. Prevoid bladder volume is 32 mL. Postvoid bladder volume is 0 mL. IMPRESSION: Normal sonographic appearance of the kidneys and bladder.
[2017-11-01] MEDS ORDERED: OXYCODONE-ACET1 EACH PO (16:03)
[2017-11-01 16:11] VITALS: BP 110/64
== END 2017-11-01 16:11 ==
LOC: ERH 10:56
PROVIDERS: Emergency Medicine
DX: N20.0 Calculus of kidney (principal)
CPT/HCPCS: 76775; 81001; 81025; 93005; 93010; 96361; 96374; 96376

== ENCOUNTER 2018-03-23 07:09 | Emergency (ER) | payer OTHER ==
[~2018-03-23] VITALS: Ht 180.3 cm; Wt 93.0 kg
[~2018-03-23 07:09] MED LIST changes: +OXYCODONE-ACET1 EACH PO
--- NOTE | 2018-03-23 07:41 | ED GENERAL ADULT ---
History of Present Illness General Chief Complaint: General Adult Stated Complaint: WHITE CP AND SEIZURES Source: patient Exam Limitations: poor historian Vital Signs & Intake/Output Vital Signs & Intake/Output Vital Signs Date Time Temp Pulse Resp B/P B/P Pulse O2 O2 Flow FiO2 Mean Ox Delivery Rate 03/23 0953 98.0 68 16 108/67 100 Room Air 03/23 0731 Room Air 03/23 0712 98.6 101 18 120/76 98 Room Air Allergies Coded Allergies: cat dander (TRIGGERS ASTHMA 11/01/17) Reconcile Medications Albuterol Sulfate (Proair Hfa) 8.5 GM HFA.AER.AD 2 PUF INH PRN ASTHMA ( Reported) Albuterol Sulfate 1.25 MG/3 ML VIAL.NEB 1 Vial INH/PATTI Q4-6 PRN ASTHMA Alprazolam (Xanax) 0.5 MG TABLET 1 TAB PO BIDP PRN anxiety Secukinumab (Cosentyx Pen (2 Pens)) 150 MG/ML PEN.INJCTR 350 MG PO Q30D PSORIATIC ARTHRITIS (Reported) Triage Note: 27 YO FEMALE TO TRIAGE FOR EVAL OF CHEST PAIN YESTERDAY. STATES SHE ALSO HAD 3 SEIZURES THROUGHOUT THE NIGHTITME, STATES HX OF "DROP SEIZURES" STATES "I DROP TO THE GROUND AND LOSE CONTROL" PT DID NOT BITE TOUNGE WITH SEIZURE OR BECOME INCONTINENT. STATES NO INJUIRIES FROM SEIZURES. STATES SHE WAS IN BED SLEEPING WHEN THE SEIZURES HAPPENED. Triage Nurses Notes Reviewed? yes : No Patient currently breastfeeds: No HPI: Patient presents for evaluation of a headache, chest pain and repeated falls. Patient states that her headache began yesterday and is described as a constant bifrontal squeezing and pressure sensation. She has a history of migraine headaches but states that this is different patient states her chest pain is an intermittent sharp chest pain that has been present for about 3 days. Became worse overnight. It is located in the upper substernal region. It does not change with deep inspiration or movement. There is no associated jaw or arm pain. She does state however that she does get intermittent tingling of the right upper extremity and currently has a loose but otherwise nonproductive cough. In regards to the falls, patient states that she fell 3 times yesterday and overnight without apparent injury. She refers having shaking of the extremities without associated loss of consciousness or incontinence. She was hospitalized about a month ago for falling and was told she has some sort of a seizure disorder but was not placed on any antiseizure medications. She saw her primary care physician recently and has been referred for neurology consultation. Patient also states that she is feeling anxious and confused. Past History Travel History Traveled to [place] past 21 day No Medical History Any Pertinent Medical History? 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 No Review of Systems Review of Systems Constitutional: Reports: no symptoms. EENTM: Reports: no symptoms. Respiratory: Reports: no symptoms. Cardiovascular: Reports: chest pain. GI: Reports: no symptoms. Genitourinary: Reports: no symptoms. Musculoskeletal: Reports: no symptoms. Skin: Reports: no symptoms. Neurological/Psychological: Reports: headache, tremors. Hematologic/Endocrine: Reports: no symptoms. Immunologic/Allergic: Reports: no symptoms. All Other Systems: Reviewed and Negative Physical Exam Physical Exam General Appearance: see below Comments: Gen.: Well-nourished, well-developed, no acute respiratory distress. Head: Normocephalic, atraumatic. Eyes: Normal inspection bilaterally Ears: Normal inspection bilaterally Nose: Normal inspection Throat/mouth : Moist mucosa Neck: Supple, full range of motion, no goiter Heart: Regular rate and rhythm, no murmurs rubs or gallops Lungs: Clear to auscultation bilaterally with normal air entry Chest: Nontender Back: Normal range of motion Abdomen: Soft, nontender, nondistended, normal bowel sounds Extremities: Normal range of motion grossly, equal radial pulses, no cyanosis clubbing or edema Neurologic: Cranial nerves grossly intact, speech is clear Skin: warm and dry, diffuse psoriatic plaques of the extremities Psychiatric: Calm, cooperative, no apparent delusions or hallucinations, anxious at times Core Measures ACS in differential dx? No CVA/TIA Diagnosis: No Sepsis Present: No Sepsis Focused Exam Completed? No Progress Differential Diagnoses I considered the following diagnoses in my evaluation of the patient: Migraine, muscle tension headache, sinusitis, angina, [place], musculoskeletal chest pain, acid reflux, seizures, tremors, anxiety Plan of Care: Orders Procedure Date/time Status TSH REFLEX 03/24 0600 Active Add-on Test (ER Only) 03/23 0932 Active MAGNESIUM 03/23 0754 Complete HUMAN BETA HCG SCREEN 03/23 0754 Complete Saline Lock 03/23 0741 Active URINE DRUG SCREEN FOR ER ONLY 03/23 0741 Complete URINALYSIS 03/23 0741 Complete TROPONIN LEVEL 03/23 0741 Complete ETHANOL 03/23 0741 Complete COMPREHENSIVE METABOLIC PANEL 03/23 0741 Complete CBC WITHOUT DIFFERENTIAL 03/23 0741 Complete EKG 03/23 0716 Active Current Medications Sig/Jeanne Start time Last Medication Dose Stop Time Status Admin Acetaminophen 1,000 MG ONCE ONE 03/23 1045 AC (Ofirmev) 03/23 1059 N/A 1 UNIT (No Carrier) Laboratory Tests 03/23/18 0955: Urine Opiates Screen < 100, Methadone Screen 93, Barbiturate Screen < 60, Ur Phencyclidine Scrn < 6.00, Amphetamines Screen < 100, U Benzodiazepines Scrn 219 H, Urine Cocaine Screen < 50, Urine Cannabis Screen > 80.00 H, Urine Color YEL , Urine Clarity TURBD H, Urine pH 6.5, Ur Specific [place] 1.020, Urine Protein NEG, Urine Ketones NEG, Urine Nitrite NEG, Urine Bilirubin NEG, Urine Urobilinogen 0.2, Ur Leukocyte Esterase SMALL H, Ur Microscopic SEDIMENT EXAMINED, Urine RBC FEW H, Urine WBC 3-5 H, Ur Epithelial Cells MANY H, Urine Bacteria FEW H, Urine Hemoglobin NEG, Urine Glucose NEG 03/23/18 0754: Anion Gap 10, Estimated GFR > 60, BUN/Creatinine Ratio 14.4, Glucose 88, Calcium 9.5, Magnesium 2.2, Total Bilirubin 0.8, AST 18, ALT 19, Alkaline Phosphatase 56 , Troponin I < 0.01, Total Protein 7.8, Albumin 4.1, Globulin 3.7, Albumin/ Globulin Ratio 1.1, Total Beta HCG NEGATIVE, CBC w Diff NO MAN DIFF REQ, RBC 4.90, MCV 86.9, MCH 29.0, MCHC 33.4, RDW 13.6, MPV 7.2 L, Gran % 72.2, Lymphocytes % 22.0, Monocytes % 4.6, Eosinophils % 0.7, Basophils % 0.5, Absolute Granulocytes 5.4, Absolute Lymphocytes 1.7, Absolute Monocytes 0.3, Absolute Eosinophils 0.1, Absolute Basophils 0, Serum Alcohol < 10.0 03/23/18 0745: Total Beta HCG Cancelled Diagnostic Imaging: Discussed w/RAD: Radiology Read, CT Scan. Radiology Impression: PATIENT: GIFTY BURLESON PRESENT AGE: 27 PATIENT ACCOUNT NO: [id number] : 88 LOCATION: [facility] ORDERING PHYSICIAN: Luis Enrique Cade MD SERVICE DATE: 03/23/18 EXAM TYPE : CAT - CT HEAD WO IV CONTRAST CT HEAD WITHOUT CONTRAST CLINICAL INFORMATION: Cough, headache, and chest pain. COMPARISON: Head CT 05/09/2014. TECHNIQUE: Contiguous axial imaging was performed from the skull base to vertex without intravenous administration of contrast. FINDINGS: There is no intracranial hemorrhage, hydrocephalus, extra-axial surface collection, midline shift, or other herniation pattern. Cohen to white matter differentiation is diffusely maintained without evidence of an evolved acute territorial infarct. The basilar cisterns are preserved. No significant soft tissue abnormality. No acute osseous abnormality. The paranasal sinuses and the mastoid air cells are well-aerated. IMPRESSION: No acute intracranial abnormality. DICTATED BY: Luis Enrique Nuno MD DATE/TIME DICTATED:03/23/18916 MACHINIST SUPERVISOR OUTSIDE:WALDO DATE/TIME TRANSCRIBED:03/23/18916 CONFIDENTIAL, DO NOT COPY WITHOUT APPROPRIATE AUTHORIZATION. <Electronically signed in Other Vendor System> SIGNED BY: Luis Enrique Nuno MD 03/23/18924 CXR Impression: PATIENT: GIFTY BURLESON PRESENT AGE : 27 PATIENT ACCOUNT NO: [id number] : 88 LOCATION: [facility] ORDERING PHYSICIAN: Luis Enrique Cade MD SERVICE DATE: 03/23/18 EXAM TYPE: RAD - XRY-CHEST XRAY, TWO VIEWS EXAMINATION: XR CHEST, 2 VIEWS CLINICAL INFORMATION: Cough. Headache. Chest pain. COMPARISON: Chest radiograph dated 03/03/2017 TECHNIQUE: PA and lateral views of the chest were obtained. FINDINGS: Lungs are clear. No consolidation, pneumothorax, or pleural effusion. Cardiac and mediastinal contours are normal. Pulmonary vasculature is unremarkable. Trachea is midline. Osseous structures are unremarkable. IMPRESSION: Normal chest radiographs. DICTATED BY: Fred Benavidez MD DATE/TIME DICTATED:03/23/18900 MACHINIST SUPERVISOR OUTSIDE:WALDO DATE/TIME TRANSCRIBED:03/23/18900 CONFIDENTIAL, DO NOT COPY WITHOUT APPROPRIATE AUTHORIZATION. <Electronically signed in Other Vendor System> SIGNED BY: Fred Benavidez MD 03/23/18904 Initial ED EKG: NSR, rate (86) Comments: 03/23/2018 9:25:13 AM I have updated Gifty on test results. We are still awaiting the CAT scan and urinalysis. 03/23/2018 10:36:17 AM I have updated Gifty on her test results including that she is testing positive for marijuana (she admits to recreational use) and benzodiazepines (she states that she was given Valium and a recent visit to the [facility] emergency Department). I have offered her treatment with IV acetaminophen, Phenergan and ketorolac. I have also notified her that after review OF the [place] prescription monitoring program website, that I could not offer her narcotic pain relievers at this time. Departure Departure Disposition: HOME OR SELF CARE Condition: Stable Clinical Impression Primary Impression: Headache Qualifiers: Headache type: unspecified Headache chronicity pattern: acute headache Intractability: not intractable Qualified Code: R51 - Headache Secondary Impressions: Atypical chest pain, Coarse tremors Referrals: Josh Lentz MD (PCP/Family) Additional Instructions: Continue your current medications. Rest, no exertion. Follow-up with your primary care physician this week for reevaluation. Return if any concerns or sudden worsening. Please note that there might be incidental findings in your evaluation that are unrelated to the current emergency department visit. Please notify your primary care doctor about this emergency department visit in order to obtain and review all of the testing performed so that these incidental findings can be monitored as needed. If you had an x-ray performed, please understand that some fractures or other findings may not be seen on the initial set of x-rays. If your symptoms persist you might need a repeat set of x-rays to check for such a fracture. If you had a laceration evaluated, please understand that foreign bodies such as glass or wood may not be visible to the naked eye or on plain x-rays. If the wound becomes red, swollen, increasingly more painful or if there is any drainage from the wound, please have it reevaluated by a physician for the possibility of a retained foreign body. If you're unable to follow up as outlined in the discharge instructions please return to the emergency department. Thank you for choosing the [facility] Emergency Department for your care. It was a pleasure to serve you today. Luis Enrique Cade M.D. [facility] Departure Forms: Customer Survey General Discharge Information Critical Care Note Critical Care Note Critical Care Time: 30-74 min
[2018-03-23 08:09] LABS: ABSOLUTE BASOPHIL COUNT 0 /CUMM (0.0-0.2); ABSOLUTE EOSINOPHIL COUNT 0.1 /CUMM (0.0-0.7); ABSOLUTE GRANULOCYTE CT 5.4 /CUMM (1.4-6.5); ABSOLUTE LYMPH COUNT 1.7 /CUMM (1.2-3.4); ABSOLUTE MONOCYTE COUNT 0.3 /CUMM (0.10-0.60); BASOPHIL % 0.5 % (0.0-2.0); EOSINOPHIL % 0.7 % (0-5); GRANULOCYTE % 72.2 % (42.2-75.2); HEMATOCRIT 42.6 % (37-47); MEAN CORPUSCULAR HGB CONC 33.4 G/DL (33.0-37.0); MEAN CORPUSCULAR VOLUME 86.9 FL (81.0-99.0); MEAN PLATELET VOLUME 7.2 FL (7.4-10.4); PLATELET COUNT 270 /CUMM (130-400); RBC DISTRIBUTION WIDTH 13.6 % (11.5-14.5); WHITE BLOOD CELL COUNT 7.5 /CUMM (4.8-10.8)
--- NOTE | 2018-03-23 09:05 | RADIOLOGY REPORT ---
EXAMINATION: XR CHEST, 2 VIEWS CLINICAL INFORMATION: Cough. Headache. Chest pain. COMPARISON: Chest radiograph dated 03/03/2017 TECHNIQUE: PA and lateral views of the chest were obtained. FINDINGS: Lungs are clear. No consolidation, pneumothorax, or pleural effusion. Cardiac and mediastinal contours are normal. Pulmonary vasculature is unremarkable. Trachea is midline. Osseous structures are unremarkable. IMPRESSION: Normal chest radiographs.
--- NOTE | 2018-03-23 09:25 | CT SCAN REPORT ---
CT HEAD WITHOUT CONTRAST CLINICAL INFORMATION: Cough, headache, and chest pain. COMPARISON: Head CT 05/09/2014. TECHNIQUE: Contiguous axial imaging was performed from the skull base to vertex without intravenous administration of contrast. FINDINGS: There is no intracranial hemorrhage, hydrocephalus, extra-axial surface collection, midline shift, or other herniation pattern. Cohen to white matter differentiation is diffusely maintained without evidence of an evolved acute territorial infarct. The basilar cisterns are preserved. No significant soft tissue abnormality. No acute osseous abnormality. The paranasal sinuses and the mastoid air cells are well-aerated. IMPRESSION: No acute intracranial abnormality.
[2018-03-23 11:24] VITALS: BP 102/60
== END 2018-03-23 11:27 ==
LOC: ERH 07:09
PROVIDERS: Emergency Medicine
DX: R51 Headache (principal); R07.89 Other chest pain; G25.2 Other specified forms of tremor
CPT/HCPCS: 71046; 80307; 81001; 93005; 93010; 96374; 96375; G0480; J0131; J1885; J2550